=== PATIENT | female | born 1940 | race African-American/Black ===

== ENCOUNTER 2021-07-23 08:56 | Inpatient (IN) ==
[2021-07-23 09:46] LABS: Basophils # (auto) 0.01 K/uL (0-0.2); Basophils % (auto) 0.1 %; Eosinophils # (auto) 0.03 K/uL (0-0.5); Eosinophils % (auto) 0.4 %; Hematocrit (blood only) 29.3 % (37-47); Hemoglobin 8.8 g/dL (12.0-16.0); Immature Granulocytes # (auto) 0.01 K/uL (0.00-0.02); Immature Granulocytes % (auto) 0.1 %; Lymphocytes # (auto) 1.01 K/uL (1.2-3.4); Lymphocytes % (auto) 13.1 %; Mean Corpuscular Hemoglobin 20.4 pg (25-34); Mean Platelet Volume 9.5 fL (7.4-10.4); Monocytes # (auto) 0.82 K/uL (0.11-0.59); Monocytes % (auto) 10.6 %; Neutrophils # (auto) 5.83 K/uL (1.4-6.5); Neutrophils % (auto) 75.7 %; Platelet Count 375 K/uL (130-400); RDW Coefficient of Variation 21.2 % (11.5-14.5); RDW Standard Deviation 48.7 fL (36.4-46.3); Red Blood Count 4.31 M/uL (4.2-5.4); White Blood Count 7.71 K/uL (4.8-10.8)
--- NOTE | 2021-07-23 09:53 | Emergency Department Note ---
Impression & Plan Retrosternal chest pain ED Provider Note INFORMANT: Patient ED PROVIDER(S): Alan Mcgovern MD CHIEF COMPLAINT: Chest pain PLAN: Disposition: Admitted Condition: Good Outpatient prescription management: none Referral: None MEDICAL DECISION MAKING: Patient presented because of chest pain. It was reproducible on examination but her cancer history is very concerning. The patient had a negative EKG. Her CBC showed a moderate stable anemia. No leukocytosis. Troponin was negative. Her c hemistry and LFTs were negative. The patient underwent CT imaging of her chest and this was nondiagnostic due to respiratory motion. Patient did receive pain medication prior to the CT and was noting feeling more comfortable. Unfortunate her D-dimer is over 4000. This complicates the issue and she needs to be brought into the hospital for further diagnostic work-up as she is high risk for pulmonary embolus. Patient is hemodynamically stable at this time. I did discuss this with her son. Consultation was made with Dr. Spears of the hospitalist service. Triage Nursing notes reviewed and agree them. Vital Signs: reviewed and remarkable for mild hypertension Differential diagnosis: Cardiac ischemia, aortic dissection, pulmonary embolism, pneumothorax, pneumonia, pericarditis, myocarditis, esophageal rupture, GERD, cholecystitis, pancreatitis, musculoskeletal, as well as other pathologies. Diagnostics interpreted by me: EC Lead ECG performed and revealed Normal sinus rhythym at 84, normal [place], QRS normal. No elevation or depression. No PACs or PVCs Cardiac Monitoring: Cardiac monitoring ordered by me: The patient was placed on continuous cardiac monitoring and observed. It revealed a normal sinus rhythm at 85 beats per minute without ectopy or evidence of dysrhythmia. Imaging studies: Chest x-ray. Findings: A chest x-ray was performed and revealed no pneumothorax, effusion, infiltrate, pulmonary edema, free air under the diaphragm, or wide mediastinum. Impression: No acute disease. CT PE study revealed no central pulmonary embolus. Peripheral emboli evaluation is nondiagnostic secondary to respiratory motion per radiology. I refer you to the EMR for further details. HPI: The patient is a 81 year old female who presents to the Emergency Room with complaints of retrosternal chest pain. This started yesterday and is persisting. The patient also notes the following associated symptoms, SOB, pain with breathing. Worse with simple movements or coughing. The patient has taken no medication for relieving factors. Current pain is rated as 6/10. Pt denies LOC, headache, fevers, chills, diaphoresis, visual changes, neck pain, nausea, vomiting, abdominal pain, back pain, melena, hematochezia, urinary symptoms, numbness, weakness, lymphadenopathy, rash, or other complaints. ROS: See above HPI for pertinent positives & negatives. A total of 10 systems reviewed and were otherwise negative. PAST MEDICAL HISTORY:See Below , uterine CA PAST SURGICAL HISTORY:See Below, FAMILY HISTORY:See Below SOCIAL HISTORY:See Below, non-smoker HOME MEDICATIONS:See Below ALLERGIES:See Below VITALS:See Below PHYSICAL EXAMINATION: GENERAL: Awake, alert, uncomfortable-appearing, in no distress HENT: Normocephalic, atraumatic. Oropharynx unremarkable. EYES: Normal conjunctiva. Sclera non-icteric. NECK: Inspection normal. Non-tender. Supple. No nuchal rigidity. FROM. No masses. RESPIRATORY: Clear to auscultation. No wheezes. No rales. Normal respiratory effort. CARDIAC: Normal rate. Normal rhythm. No murmurs. No rubs. Extremities warm and well perfused. Pulses equal. No JVD. GI: Soft, non-distended. No tenderness to palpation. No rebound or guarding. No masses. RECTAL: Deferred. MUSCULOSKELETAL: Atraumatic. Chest examination reveals significant parasternal tenderness. The back is symmetrical on inspection without obvious abnormality. There is no CVA tenderness to palpation. No joint edema. LOWER EXTREMITIES: Calves are equal size bilaterally and non-tender. No edema. No discoloration. NEURO: Normal sensorium. No sensory or motor deficits noted. SKIN: No rash or jaundice noted. Alan Mcgovern MD Past Med/Surg History Medical History (Updated 07/23/21 @ 14:57 by Delphine Auguste MD) Bladder cancer Hematuria Hypertension Pelvic mass in female Sciatica Surgical History Hx of cataract surgery Total knee replacement status Family History Denies family history of Ovarian cancer Prostate cancer Myocardial infarction Breast cancer Lung cancer Colorectal cancer Stroke Social History Smoking Status: Never smoker Second Hand Exposure: No; Hx Alcohol Use: No Hx Substance Use: No Preferred Language: Occitan Visual Impairment: No Limitations Hearing Ability: Normal Manager Occupational Required: Yes Beliefs That Will Affect Care: None marital status: / Current Living Situation: Family current occupational status: retired current occupation: Hotel worker How many Children do You have: 3 How many Children do You have Comment: 2-girls 1-Boy Feels Safe at Home: Yes Allergies Allergies Allergy/AdvReac Type Severity Reaction Status Date / Time No Known Allergies Allergy Verified 07/23/21 11:26 Home Meds Home Medications Medication Instructions Recorded Confirmed calcium carbonate 600 mg calcium 600 mg PO DAILY 05/23/20 07/23/21 (1,500 mg) tablet Previous Rx's Medication Instructions Recorded Wheelchair (Manual) #1 ea 06/22/20 gabapentin 400 mg capsule 400 mg PO HS #30 cap 10/27/20 oxycodone 5 mg tablet (Roxicodone) 5 mg PO Q8H PRN #21 tab 06/13/21 metoprolol tartrate 100 mg tablet 100 mg PO DAILY #90 tab 06/14/21 Results & Data (ED) Vital Signs Vital Signs - 24 hr 07/23/21 09:03 07/23/21 09:18 07/23/21 09:56 Temperature 36.7 C Temperature Source Temporal Artery Scan Pulse Rate 84 Pulse Rate [Apical] 83 Pulse Rate from SpO2 Sensor Respiratory Rate 18 22 Respiratory Effort / Characteristics Non-Labored Respiratory Depth Normal Normal Blood Pressure 126/75 Blood Pressure [Left Arm] 134/81 Blood Pressure Mean 92 Blood Pressure Mean [Left Arm] 98 Pulse Oximetry 97 96 Oxygen Delivery Method Room Air Room Air Sepsis Recent Fever Within 48 Hours No Sepsis New/Unexplained Change in Mental Status No Sepsis Action Taken by Nursing No Action Required 07/23/21 11:00 07/23/21 12:00 07/23/21 12:30 Temperature Temperature Source Pulse Rate 77 93 H 89 Pulse Rate [Apical] Pulse Rate from SpO2 Sensor 94 H 89 Respiratory Rate 24 20 20 Respiratory Effort / Characteristics Respiratory Depth Blood Pressure 140/70 121/68 145/75 H Blood Pressure [Left Arm] Blood Pressure Mean 93 85 98 Blood Pressure Mean [Left Arm] Pulse Oximetry 95 95 94 Oxygen Delivery Method Room Air Room Air Room Air Sepsis Recent Fever Within 48 Hours Sepsis New/Unexplained Change in Mental Status Sepsis Action Taken by Nursing 07/23/21 13:00 07/23/21 13:30 07/23/21 14:00 Temperature Temperature Source Pulse Rate 88 88 93 H Pulse Rate [Apical] Pulse Rate from SpO2 Sensor 88 89 91 H Respiratory Rate 19 25 H 24 Respiratory Effort / Characteristics Respiratory Depth Blood Pressure 104/52 L 124/82 125/84 Blood Pressure [Left Arm] Blood Pressure Mean 69 96 97 Blood Pressure Mean [Left Arm] Pulse Oximetry 95 96 95 Oxygen Delivery Method Room Air Room Air Room Air Sepsis Recent Fever Within 48 Hours Sepsis New/Unexplained Change in Mental Status Sepsis Action Taken by Nursing 07/23/21 14:30 07/23/21 15:00 07/23/21 15:30 Temperature Temperature Source Pulse Rate 85 89 85 Pulse Rate [Apical] Pulse Rate from SpO2 Sensor 85 90 86 Respiratory Rate 21 24 21 Respiratory Effort / Characteristics Respiratory Depth Blood Pressure 128/65 148/87 H Blood Pressure [Left Arm] Blood Pressure Mean 86 107 Blood Pressure Mean [Left Arm] Pulse Oximetry 94 95 95 Oxygen Delivery Method Room Air Room Air Room Air Sepsis Recent Fever Within 48 Hours Sepsis New/Unexplained Change in Mental Status Sepsis Action Taken by Nursing Laboratory Data Result diagrams: 07/23/21 09:36 07/23/21 09:36 Lab Results 07/23/21 07/23/21 07/23/21 Range/Units 09:36 09:36 09:36 WBC 7.71 (4.8-10.8) K/uL RBC 4.31 (4.2-5.4) M/uL Hgb 8.8 L (12.0-16.0) g/dL Hct 29.3 L (37-47) % MCV 68.0 L (80-100) fL MCH 20.4 L (25-34) pg MCHC 30.0 L (32-36) g/dL RDW Std Deviation 48.7 H (36.4-46.3) fL RDW Coeff of [place] 21.2 H (11.5-14.5) % Plt Count 375 (130-400) K/uL MPV 9.5 (7.4-10.4) fL Immature Gran % (Auto) 0.1 % Neut % (Auto) 75.7 % Lymph % (Auto) 13.1 % [place] % (Auto) 10.6 % Eos % (Auto) 0.4 % Baso % (Auto) 0.1 % Neut # (Auto) 5.83 (1.4-6.5) K/uL Lymph # (Auto) 1.01 L (1.2-3.4) K/uL [place] # (Auto) 0.82 H (0.11-0.59) K/uL Eos # (Auto) 0.03 (0-0.5) K/uL Baso # (Auto) 0.01 (0-0.2) K/uL Immature Gran # (Auto) 0.01 (0.00-0.02) K/uL Hypochromasia Present Anisocytosis Present Microcytosis Present D-Dimer 4090 H* (0-500) ug/L FEU Sodium 137 (136-145) mmol/L Potassium 4.0 (3.5-5.1) mmol/L Chloride 104 (98-107) mmol/L Carbon Dioxide 26 (21-32) mmol/L Anion Gap 7.0 (3-11) BUN 14 (7-18) mg/dl Creatinine 1.41 H (0.6-1.2) mg/dl Est Cr Clr Drug Dosing Not Reportable Est GFR ( Amer) 39.8 ml/min Est GFR (Non-Af Amer) 34.4 ml/min BUN/Creatinine Ratio 9.7 L (10-20) Glucose 91 (70-99) mg/dl Calcium 9.1 (8.5-10.1) mg/dl Total Bilirubin 0.6 (0.2-1) mg/dl AST 19 (15-37) U/L ALT 12 (12-78) U/L Alkaline Phosphatase 86 (45-117) U/L Troponin I < 0.015 (0-0.045) ng/ml Total Protein 8.7 H (6.4-8.2) gm/dl Albumin 2.7 L (3.4-5.0) gm/dl Globulin 6.0 H (2.5-4.0) gm/dl Albumin/Globulin Ratio 0.5 L (0.9-2) Lipase 66 L (73-393) U/L COVID-19 Eval Order SARS-CoV-2 (PCR) (Negative) 07/23/21 07/23/21 Range/Units 13:57 13:57 WBC (4.8-10.8) K/uL RBC (4.2-5.4) M/uL Hgb (12.0-16.0) g/dL Hct (37-47) % MCV (80-100) fL MCH (25-34) pg MCHC (32-36) g/dL RDW Std Deviation (36.4-46.3) fL RDW Coeff of [place] (11.5-14.5) % Plt Count (130-400) K/uL MPV (7.4-10.4) fL Immature Gran % (Auto) % Neut % (Auto) % Lymph % (Auto) % [place] % (Auto) % Eos % (Auto) % Baso % (Auto) % Neut # (Auto) (1.4-6.5) K/uL Lymph # (Auto) (1.2-3.4) K/uL [place] # (Auto) (0.11-0.59) K/uL Eos # (Auto) (0-0.5) K/uL Baso # (Auto) (0-0.2) K/uL Immature Gran # (Auto) (0.00-0.02) K/uL Hypochromasia Anisocytosis Microcytosis D-Dimer (0-500) ug/L FEU Sodium (136-145) mmol/L Potassium (3.5-5.1) mmol/L Chloride (98-107) mmol/L Carbon Dioxide (21-32) mmol/L Anion Gap (3-11) BUN (7-18) mg/dl Creatinine (0.6-1.2) mg/dl Est Cr Clr Drug Dosing Est GFR ( Amer) ml/min Est GFR (Non-Af Amer) ml/min BUN/Creatinine Ratio (10-20) Glucose (70-99) mg/dl Calcium (8.5-10.1) mg/dl Total Bilirubin (0.2-1) mg/dl AST (15-37) U/L ALT (12-78) U/L Alkaline Phosphatase (45-117) U/L Troponin I (0-0.045) ng/ml Total Protein (6.4-8.2) gm/dl Albumin (3.4-5.0) gm/dl Globulin (2.5-4.0) gm/dl Albumin/Globulin Ratio (0.9-2) Lipase (73-393) U/L COVID-19 Eval Order Covid19 at [facility] SARS-CoV-2 (PCR) NEGATIVE (Negative) Administered Medications Discontinued Medications Ioversol (Optiray 320 125ml) 120 ml IV ONCE ONE Stop: 07/23/21 11:45 Last Admin: 07/23/21 11:44 Dose: 120 ml Documented by: [id number] Morphine Sulfate (Morphine Sulfate 2 Mg/Ml [place]) 2 mg IV NOW STA Stop: 07/23/21 09:56 Last Admin: 07/23/21 10:15 Dose: 2 mg Documented by: [id number] Ondansetron HCl (Ondansetron Inj 2 Mg/Ml 2 Ml Vial) 4 mg IV NOW STA Stop: 07/23/21 09:56 Last Admin: 07/23/21 10:15 Dose: 4 mg Documented by: [id number] Imaging Data Radiologist's Impression: Chest X-Ray 07/23/21 09:26 XR chest 1V portable CLINICAL HISTORY: Atypical chest pain. COMPARISON STUDY: Chest radiograph May 23, 2020. FINDINGS: Lung volumes are normal. Lungs are clear. There is no pneumothorax or pleural effusion. Cardiomegaly is unchanged. Mediastinal contours are normal. There is no evidence for pulmonary edema. 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 IMPRESSION: No acute cardiopulmonary findings. Stable cardiomegaly. ACT 112: Negative or not required by law. Electronically signed by: Scooter Barragan M.D. 07/23/2021 10:26 AM Chest CTA 07/23/21 11:25 CT ANGIOGRAPHY OF THE CHEST, PULMONARY EMBOLUS PROTOCOL CLINICAL HISTORY: Chest pain. Shortness of breath. History of malignancy. COMPARISON STUDY: Chest radiograph June 02, 2020 and July 23, 2021. TECHNIQUE: Following IV administration of 120 mL of Optiray, helical axial images of the chest were obtained utilizing the pulmonary embolus protocol. Maximal intensity projections and sagittal and coronal reformats were viewed on an independent 3D workstation. IV contrast was administered without complication. Automated exposure control was utilized for the study. A dose lowering technique was utilized adhering to the principles of ALARA. CT DOSE: 829.88 mGy.cm FINDINGS: This exam is significantly compromised by respiratory motion. No central pulmonary emboli are identified. Evaluation of the remainder of the pulmonary arteries is nondiagnostic. There is moderate cardiomegaly. No pericardial effusion is present. There is a mildly enlarged right cardiophrenic angle lymph node that measures 1.5 cm. Small bilateral pleural effusions are n oted. Lungs are suboptimally assessed due to respiratory motion. There are mild groundglass opacities within the lungs. No definite consolidation is present. No acute fracture or suspicious lesion is identified within visualized portions of the bony thorax. A small amount of upper abdominal ascites has increased since prior exam. There is suspected peritoneal/omental nodularity. There may be wall thickening of several left upper quadrant jejunal loops, partially imaged on this exam. A splenic hypodensity was present on CT of June 30, 2020. This is indeterminate although probably benign. Prominent right axillary lymph node is unchanged. IMPRESSION: 1. No central pulmonary emboli. Nondiagnostic evaluation of the remainder of the pulmonary arteries due to motion artifact. 2. Small bilateral pleural effusions. Groundglass opacities within the lungs which favor atelectasis or air trapping. An infectious process is considered less likely. 3. Increase in upper abdominal ascites. Findings suspicious for peritoneal carcinomatosis. Enlarged right cardiophrenic angle lymph node which may reflect nadia spread of disease. 4. Possible wall thickening of several left upper quadrant jejunal loops, incompletely imaged on this exam. ACT 112: Negative or not required by law. Electronically signed by: Scooter Barragan M.D. 07/23/2021 12:07 PM Discharge Plan Visit Data Chief Complaint: Chest Pain Stated Complaint: CHEST PAIN, SOB ED Provider: Alan Mcgovern Discharge Problem: Retrosternal chest pain Forms Stand Alone Forms: [facility] [employer] Prescriptions Prescriptions: No Action (DME) Wheelchair (Manual) Device See Rx Instructions .ROUTE .MEDSUPPLY Qty: 1 RF: 0 gabapentin 400 mg capsule 400 mg PO HS Qty: 30 RF: 2 metoprolol tartrate 100 mg tablet 100 mg PO DAILY Qty: 90 RF: 0 calcium carbonate 600 mg calcium (1,500 mg) tablet 600 mg PO DAILY RF: 0 oxycodone [Roxicodone] 5 mg tablet 5 mg PO Q8H PRN (Reason: pain) Qty: 21 RF: 0 Referrals Referrals: Wanda Morse MD [Primary Care Provider] -
[2021-07-23] MEDS ORDERED: MoRPHine SULFATE 2 MG/ML CARP IV STA (09:55)
[2021-07-23] MEDS ORDERED: ONDANSETRON INJ 2 MG/ML 2 ML VIAL IV STA (09:55)
[2021-07-23 10:09] LABS: Anisocytosis Present; Hypochromasia Present; Microcytosis Present
[2021-07-23 10:11] LABS: Alanine Aminotransferase 12 U/L (12-78); Albumin Level 2.7 gm/dl (3.4-5.0); Aspartate Aminotransferase 19 U/L (15-37); BUN Creatinine Ratio 9.7 (10-20); Blood Urea Nitrogen 14 mg/dl (7-18); Calcium 9.1 mg/dl (8.5-10.1); Carbon Dioxide 26 mmol/L (21-32); Chloride 104 mmol/L (98-107); Est GFR (African American) 39.8 ml/min; Est GFR (Non-African American) 34.4 ml/min; Glucose 91 mg/dl (70-99); Lipase 66 U/L (73-393); Sodium 137 mmol/L (136-145)
[2021-07-23 10:16] LABS: Albumin Globulin Ratio 0.5 (0.9-2); Alkaline Phosphatase 86 U/L (45-117); Bilirubin,Total 0.6 mg/dl (0.2-1); Total Protein 8.7 gm/dl (6.4-8.2); Troponin I < 0.015 ng/ml (0-0.045)
--- NOTE | 2021-07-23 10:27 | XRay Report ---
XR chest 1V portable CLINICAL HISTORY: Atypical chest pain. COMPARISON STUDY: Chest radiograph May 23, 2020. FINDINGS: Lung volumes are normal. Lungs are clear. There is no pneumothorax or pleural effusion. Car diomegaly is unchanged. Mediastinal contours are normal. There is no evidence for pulmonary edema. In cidental note is made of severe degenerative changes of the right shoulder and moderate to severe ost eoarthritis of the left shoulder. IMPRESSION: No acute cardiopulmonary findings. Stable cardiomegaly. ACT 112: Negative or not required by law. Electronically signed by: Scooter Barragan M.D. 07/23/2021 10:26 AM
[2021-07-23] MEDS ORDERED: OPTIRAY 320 125ml IV ONE (11:44)
--- NOTE | 2021-07-23 12:08 | CT Scan Report ---
CT ANGIOGRAPHY OF THE CHEST, PULMONARY EMBOLUS PROTOCOL CLINICAL HISTORY: Chest pain. Shortness of breath. History of malignancy. COMPARISON STUDY: Chest radiograph June 02, 2020 and July 23, 2021. TECHNIQUE: Following IV administration of 120 mL of Optiray, helical axial images of the chest were o btained utilizing the pulmonary embolus protocol. Maximal intensity projections and sagittal and cor onal reformats were viewed on an independent 3D workstation. IV contrast was administered without co mplication. Automated exposure control was utilized for the study. A dose lowering technique was ut ilized adhering to the principles of ALARA. CT DOSE: 829.88 mGy.cm FINDINGS: This exam is significantly compromised by respiratory motion. No central pulmonary emboli are identified. Evaluation of the remainder of the pulmonary arteries is nondiagnostic. There is mode rate cardiomegaly. No pericardial effusion is present. There is a mildly enlarged right cardiophrenic angle lymph node that measures 1.5 cm. Small bilateral pleural effusions are noted. Lungs are subopt imally assessed due to respiratory motion. There are mild groundglass opacities within the lungs. No definite consolidation is present. No acute fracture or suspicious lesion is identified within visual ized portions of the bony thorax. A small amount of upper abdominal ascites has increased since prior exam. There is suspected peritoneal/omental nodularity. There may be wall thickening of several left upper quadrant jejunal loops, partially imaged on this exam. A splenic hypodensity was present on CT of June 30, 2020. This is indeterminate although probably benign. Prominent right axillary lymph node is unchanged. IMPRESSION: 1. No central pulmonary emboli. Nondiagnostic evaluation of the remainder of the pulmonary arteries d ue to motion artifact. 2. Small bilateral pleural effusions. Groundglass opacities within the lungs which favor atelectasis or air trapping. An infectious process is considered less likely. 3. Increase in upper abdominal ascites. Findings suspicious for peritoneal carcinomatosis. Enlarged r ight cardiophrenic angle lymph node which may reflect nadia spread of disease. 4. Possible wall thickening of several left upper quadrant jejunal loops, incompletely imaged on this exam. ACT 112: Negative or not required by law. Electronically signed by: Scooter Barragan M.D. 07/23/2021 12:07 PM
[2021-07-23 13:33] LABS: D Dimer 4090 ug/L FEU (0-500)
--- NOTE | 2021-07-23 13:52 | History & Physical Report ---
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 Allergies Allergy/AdvReac Type Severity Reaction Status Date / Time No Known Allergies Allergy Verified 07/23/21 11:26 Home Medications Medication Instructions Recorded Confirmed Type calcium carbonate 600 mg calcium 600 mg PO DAILY 05/23/20 07/23/21 History (1,500 mg) tablet Wheelchair (Manual) #1 ea 06/22/20 07/10/20 Rx gabapentin 400 mg capsule 400 mg PO HS #30 cap 10/27/20 07/23/21 Rx oxycodone 5 mg tablet (Roxicodone) 5 mg PO Q8H PRN #21 tab 06/13/21 07/23/21 Rx metoprolol tartrate 100 mg tablet 100 mg PO DAILY #90 tab 06/14/21 07/23/21 Rx Past Med/Surg History Medical History Bladder cancer Hematuria Hypertension Pelvic mass in female Sciatica Surgical History Hx of cataract surgery Total knee replacement status Family History Denies family history of Ovarian cancer Prostate cancer Myocardial infarction Breast cancer Lung cancer Colorectal cancer Stroke Social History Smoking Status: Never smoker Second Hand Exposure: No; Hx Alcohol Use: No Hx Substance Use: No Preferred Language: Hebrew Visual Impairment: No Limitations Hearing Ability: Normal Legal Transcriptionist Required: Yes Beliefs That Will Affect Care: None marital status: / Current Living Situation: Family current occupational status: retired current occupation: Hotel worker How many Children do You have: 3 How many Children do You have Comment: 2-girls 1-Boy Feels Safe at Home: Yes Results & Data Results & Data ([facility]) Vital Signs (Past 12 Hours) Vital Signs Temp Pulse Pulse Resp BP BP Pulse Ox 07/23/21 13:00 88 19 104/52 L 95 07/23/21 12:30 89 20 145/75 H 94 07/23/21 12:00 93 H 20 121/68 95 07/23/21 11:00 77 24 140/70 95 07/23/21 09:56 83 22 134/81 96 07/23/21 09:03 36.7 C 84 18 126/75 97 PG Care Time/CCT Total # of Minutes Spent Total Time Spent with Patient: Total time spent is greater than 50% in coordination of care (as documented) at patient's floor/unit and/or counseling patient: Coding
--- NOTE | 2021-07-23 15:02 | History & Physical Report ---
Date of Service July 23, 2021 Assessment & Plan (1) Retrosternal chest pain: Plan: Patient's pain appears to be pleuritic, worse on taking deep breaths and worse on movement. Likely noncardiac, most likely associated with peritoneal irritation given her history of cancer. 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 Upon discharge, urged patient to complete the PET scan (3) Hematuria: Plan: Most likely from urothelial cancer, patient states she has been having hematuria on and off for the past couple of years Hemoglobin 8.6 today According to daughter, patient gets IV iron regularly Monitor H&H Transfuse if hemoglobin drops below 7 Admission and Anticipated Discharge Date Admission Date: I anticipate early discharge, so the patient can complete her PET scan. Her chest pain is most likely pleuritic. History of Present Illness Chief Complaint: chest pain Primary Care Provider: Wanda Morse MD This is an 81-year-old female with a history of urothelial carcinoma of the bladder, with local invasion into the adjacent uterus as well as internal and external and left common iliac lymph nodes who presents to the hospital today with complaints of chest pain. Some of the history was obtained from the patient's daughter Wanda who said that the patient was about to get an outpatient PET scan but could not tolerate the procedure because she started having chest pain. The patient said that the chest pain is mostly pleuritic, worse on movement and nonradiating. According to the daughter, patient follows up with the radiation oncologist who had ordered a PET scan. Today in the ED EKG did not show any ST changes and troponin was normal. On account of elevated D-dimer, a CT angio was done which did not show any evidence of PE but demonstrated an increase in upper abdominal ascites and also suspicion for peritoneal carcinomatosis. Initial blood pressure was 104/52, the rest of vital signs are stable. Patient will be admitted to the hospital for further management. Allergies Allergy/AdvReac Type Severity Reaction Status Date / Time No Known Allergies Allergy Verified 07/23/21 11:26 Home Medications Medication Instructions Recorded Confirmed Type calcium carbonate 600 mg calcium 600 mg PO DAILY 05/23/20 07/23/21 History (1,500 mg) tablet Wheelchair (Manual) #1 ea 06/22/20 07/10/20 Rx gabapentin 400 mg capsule 400 mg PO HS #30 cap 10/27/20 07/23/21 Rx oxycodone 5 mg tablet (Roxicodone) 5 mg PO Q8H PRN #21 tab 06/13/21 07/23/21 Rx metoprolol tartrate 100 mg tablet 100 mg PO DAILY #90 tab 06/14/21 07/23/21 Rx Past Med/Surg History Medical History (Updated 07/23/21 @ 14:57 by Delphine Auguste MD) Bladder cancer Hematuria Hypertension Pelvic mass in female Sciatica Surgical History Hx of cataract surgery Total knee replacement status Family History Denies family history of Ovarian cancer Prostate cancer Myocardial infarction Breast cancer Lung cancer Colorectal cancer Stroke Social History Smoking Status: Never smoker Second Hand Exposure: No; Hx Alcohol Use: No Hx Substance Use: No Preferred Language: Syriac Visual Impairment: No Limitations Hearing Ability: Normal Inoculator Required: Yes Beliefs That Will Affect Care: None marital status: / Current Living Situation: Family current occupational status: retired current occupation: Hotel worker How many Children do You have: 3 How many Children do You have Comment: 2-girls 1-Boy Feels Safe at Home: Yes Review of Systems Review of Systems: All systems reviewed are negative, apart from the ones contained in the history. Physical Exam Physical Exam: The patient is awake, alert and oriented 3, well developed and well nourished, normocephalic and atraumatic, lying in bed and in no acute distress. HEENT--PERRL, EOMI, mucous membranes and oropharynx mildly dry Neck--supple. No JVD. No bruits. Thyroid normal, trachea midline, no adenopathy. Heart--normal S1 and S2. No murmurs, rubs or gallops. Lungs--clear bilaterally, no respiratory distress, no accessory muscle use. Abdomen--Distended, tender Extremities--no cyanosis or clubbing. No edema. Dermatologic--normal skin turgor, normal color, no abnormal lymph nodes, no rash. Neurologic--cranial nerves II through XII grossly intact. Rheumatologic--normal range of motion. Psychiatric--normal affect. Results & Data Results & Data ([facility] Vital Signs (Past 12 Hours) Vital Signs Temp Pulse Pulse Resp BP BP Pulse Ox 07/23/21 13:00 88 19 104/52 L 95 07/23/21 12:30 89 20 145/75 H 94 07/23/21 12:00 93 H 20 121/68 95 07/23/21 11:00 77 24 140/70 95 07/23/21 09:56 83 22 134/81 96 07/23/21 09:03 98.1 F 84 18 126/75 97 Diagnostic Findings Laboratory Results - last 24 hr 07/23/21 07/23/21 07/23/21 09:36 09:36 09:36 WBC 7.71 RBC 4.31 Hgb 8.8 L Hct 29.3 L MCV 68.0 L MCH 20.4 L MCHC 30.0 L RDW Std Deviation 48.7 H RDW Coeff of [place] 21.2 H Plt Count 375 MPV 9.5 Immature Gran % (Auto) 0.1 Neut % (Auto) 75.7 Lymph % (Auto) 13.1 [place] % (Auto) 10.6 Eos % (Auto) 0.4 Baso % (Auto) 0.1 Neut # (Auto) 5.83 Lymph # (Auto) 1.01 L [place] # (Auto) 0.82 H Eos # (Auto) 0.03 Baso # (Auto) 0.01 Immature Gran # (Auto) 0.01 Hypochromasia Present Anisocytosis Present Microcytosis Present D-Dimer 4090 H* Sodium 137 Potassium 4.0 Chloride 104 Carbon Dioxide 26 Anion Gap 7.0 BUN 14 Creatinine 1.41 H Est Cr Clr Drug Dosing Not Reportable Est GFR ( Amer) 39.8 Est GFR (Non-Af Amer) 34.4 BUN/Creatinine Ratio 9.7 L Glucose 91 Calcium 9.1 Total Bilirubin 0.6 AST 19 ALT 12 Alkaline Phosphatase 86 Troponin I < 0.015 Total Protein 8.7 H Albumin 2.7 L Globulin 6.0 H Albumin/Globulin Ratio 0.5 L Lipase 66 L COVID-19 Eval Order SARS-CoV-2 (PCR) 07/23/21 07/23/21 13:57 13:57 WBC RBC Hgb Hct MCV MCH MCHC RDW Std Deviation RDW Coeff of [place] Plt Count MPV Immature Gran % (Auto) Neut % (Auto) Lymph % (Auto) [place] % (Auto) Eos % (Auto) Baso % (Auto) Neut # (Auto) Lymph # (Auto) [place] # (Auto) Eos # (Auto) Baso # (Auto) Immature Gran # (Auto) Hypochromasia Anisocytosis Microcytosis D-Dimer Sodium Potassium Chloride Carbon Dioxide Anion Gap BUN Creatinine Est Cr Clr Drug Dosing Est GFR ( Amer) Est GFR (Non-Af Amer) BUN/Creatinine Ratio Glucose Calcium Total Bilirubin AST ALT Alkaline Phosphatase Troponin I Total Protein Albumin Globulin Albumin/Globulin Ratio Lipase COVID-19 Eval Order Covid19 at [facility] SARS-CoV-2 (PCR) Pending PG Care Time/CCT Total # of Minutes Spent Total Time Spent with Patient: Total time spent is greater than 50% in coordination of care (as documented) at patient's floor/unit and/or counseling patient: Coding Level of Care Code 11973 Initial Inpt Care Lvl 3 Diagnoses Hematuria R31.9 Bladder cancer C67.9 Retrosternal chest pain R07.2
--- NOTE | 2021-07-23 15:27 | Electrocardiogram Report ---
Test Reason : Blood Pressure : / mmHG Vent. Rate : 084 BPM Atrial Rate : 084 BPM P-R Int : 154 ms QRS Dur : 074 ms QT Int : 384 ms P-R-T Axes : 065 003 023 degrees QTc Int : 453 ms Normal sinus rhythm Normal ECG No previous ECGs available Confirmed by Sunil Kerr ([id number]) on 07/23/2021 3:27:24 PM Referred By: REFERRED SELF Confirmed By:Sunil Kerr
[2021-07-23] MEDS ORDERED: oxyCODONE HCL IR 5 MG TAB (IMMEDIATE RELEASE) PO PRN (18:03)
[2021-07-23] MEDS ORDERED: MoRPHine SULFATE 2 MG/ML CARP IV PRN (18:03)
[2021-07-23] MEDS ORDERED: GABAPENTIN 400 MG CAP PO SCH (21:00)
[2021-07-24] MEDS ORDERED: METOPROLOL TARTRATE 100 MG TAB PO SCH (09:00)
[2021-07-24] MEDS ORDERED: CALCIUM CARBONATE 1250MG TAB PO SCH (09:00)
--- NOTE | 2021-07-24 11:15 | Discharge Summary ---
Date of Service July 24, 2021 Admission HPI Per Admitting Provider This is an 81-year-old female with a history of urothelial carcinoma of the bladder, with local invasion into the adjacent uterus as well as internal and external and left common iliac lymph nodes who presents to the hospital today with complaints of chest pain. Some of the history was obtained from the patient's daughter Wanda who said that the patient was about to get an outpatient PET scan but could not tolerate the procedure because she started having chest pain. The patient said that the chest pain is mostly pleuritic, worse on movement and nonradiating. According to the daughter, patient follows up with the radiation oncologist who had ordered a PET scan. Today in the ED EKG did not show any ST changes and troponin was normal. On account of elevated D-dimer, a CT angio was done which did not show any evidence of PE but demonstrated an increase in upper abdominal ascites and also suspicion for peritoneal carcinomatosis. Initial blood pressure was 104/52, the rest of vital signs are stable. Patient will be admitted to the hospital for further management. Upon further hospitalization, patient received morphine for pain management, with improvement in her chest pain. She expressed a willingness to be discharged. She was asked to follow up with her Oncologist for proper management of her cancer Principal Diagnosis Pleuritic chest pain Discharge Exam The patient is awake, alert and oriented 3, well developed and well nourished, normocephalic and atraumatic, lying in bed and in no acute distress. HEENT--PERRL, EOMI, mucous membranes and oropharynx mildly dry Neck--supple. No JVD. No bruits. Thyroid normal, trachea midline, no adenopathy. Heart--normal S1 and S2. No murmurs, rubs or gallops. Lungs--clear bilaterally, no respiratory distress, no accessory muscle use. Abdomen--Distended, tender Extremities--no cyanosis or clubbing. No edema. Dermatologic--normal skin turgor, normal color, no abnormal lymph nodes, no rash. Neurologic--cranial nerves II through XII grossly intact. Rheumatologic--normal range of motion. Psychiatric--normal affect. 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 Upon discharge, urged patient to complete the PET scan (2) Hematuria: Most likely from urothelial cancer, patient states she has been having hematuria on and off for the past couple of years Hemoglobin 8.6 today According to daughter, patient gets IV iron regularly Monitor H&H Transfuse if hemoglobin drops below 7 Total Time Total Time Spent Total Time Spent (In Minutes): >35 min Discharge Plan Discharge Items Patient Disposition: Personal Jail Reason For Visit: CHEST PAIN Discharge Diagnosis: Pleuritic chest pain- resolved Condition on Discharge: Fair Health Concerns: Metastatic urothelial cancer Activity: Resume your previous activity Lifting: Gradually increase as tolerated Bathing: No limitations Non-emergency contact: Primary Care Provider and Oncologist Call non-emergency contact if: you have any medication questions, your symptoms worsen and your pain is not controlled Follow-up/Referrals: Wanda Morse MD [Primary Care Provider] - 07/27/21 2:00 pm (APPT WITH CHINA MCKEON) Diet: Regular Addtl Attending Provider Instructions: Please make appointment to complete your PET scan Pending Studies at Discharge: No Stand-Alone Forms: My [employer], Smoking Cessation Skilled Items Patient informed of condition?: Yes DNR: No Discharge Level of Care: Other Communicable Disease: No Discharge Prognosis: Other Lines: None Urinary Catheter: No Medications and DC Order Prescriptions: Continued (DME) Wheelchair (Manual) Device See Rx Instructions .ROUTE .MEDSUPPLY Qty: 1 RF: 0 gabapentin 400 mg capsule 400 mg PO HS Qty: 30 RF: 2 metoprolol tartrate 100 mg tablet 100 mg PO DAILY Qty: 90 RF: 0 calcium carbonate 600 mg calcium (1,500 mg) tablet 600 mg PO DAILY RF: 0 oxycodone [Roxicodone] 5 mg tablet 5 mg PO Q8H PRN (Reason: pain) Qty: 21 RF: 0 Discharge Orders: Discharge Order (Routine); Ordered 07/24/21 Ordered By: Delphine Auguste Admission Data Admit Date/Time: 07/23/21 15:38 Attending Provider: Delphine Auguste Admit Provider: Delphine Auguste Primary Care Provider: Wanda Morse Other Providers: Sunil Spears Coding Level of Care Code D/C DAY MANAGEMENT >30 MINS Diagnoses Bladder cancer C67.9 Hematuria R31.9
[2021-07-24] MEDS ORDERED: IRON SUCROSE 400 MG in SODIUM CHLORIDE 0.9% 250 ML IV ONE (14:30)
[2021-07-24] MEDS ORDERED: FUROSEMIDE 40 MG/4 ML VIAL IV ONE (15:34)
== END 2021-07-24 18:36 | disposition home or self-care (01) | DRG 204 ==
LOC: ED 08:56 → 3N 15:38

== ENCOUNTER 2021-08-14 12:40 | Inpatient (IN) ==
[2021-08-14] MEDS ORDERED: ALBUT/IPRATROP 3MG/0.5MG NEB 3 ML VIAL INH STA (12:55)
[2021-08-14] MEDS ORDERED: SODIUM CHLORIDE 0.9% 500 ML IV STA (12:55)
--- NOTE | 2021-08-14 13:02 | Emergency Department Note ---
History of Present Illness General Chief complaint: Shortness of Breath/Dyspnea Time Seen by Provider: 08/14/21 12:48 History of Present Illness 81-year-old female presents to the ED with a chief complaint of shortness of breath. History was mainly obtained from the daughter. She states that she has been more short of breath than usual. She has been more short of breath since last week when she had a chest x-ray here. The patient is chronically on fentanyl and oxycodone for metastatic bladder cancer. The patient does have also a history of anemia and received an iron transfusion 2 weeks ago. No addit ional complaints. The daughter reports some wheezing in the upper airways noted on observation the patient. Home Medications Medication Instructions Recorded Confirmed Type calcium carbonate 600 mg calcium 600 mg PO DAILY 05/23/20 07/23/21 History (1,500 mg) tablet Wheelchair (Manual) #1 ea 06/22/20 07/10/20 Rx gabapentin 400 mg capsule 400 mg PO HS #30 cap 10/27/20 07/23/21 Rx oxycodone 5 mg tablet (Roxicodone) 5 mg PO Q8H PRN #21 tab 06/13/21 07/23/21 Rx metoprolol tartrate 100 mg tablet 100 mg PO DAILY #90 tab 06/14/21 07/23/21 Rx Allergies Allergy/AdvReac Type Severity Reaction Status Date / Time No Known Allergies Allergy Verified 07/23/21 11:26 Past Med/Surg History Medical History Bladder cancer Hematuria Hypertension Pelvic mass in female Sciatica Surgical History Hx of cataract surgery Total knee replacement status Family History Denies family history of Ovarian cancer Prostate cancer Myocardial infarction Breast cancer Lung cancer Colorectal cancer Stroke Social History Smoking Status: Never smoker Second Hand Exposure: No; Hx Alcohol Use: No Hx Substance Use: No Preferred Language: Guyanese Creole Communication Ability: Effective Communication Tools: Language Line Arc Air Operator Visual Impairment: No Limitations Hearing Ability: Normal Arc Air Operator Required: Yes Beliefs That Will Affect Care: None marital status: / Current Living Situation: Other Current Living Situation Comment: [place] current occupational status: retired current occupation: Hotel worker How many Children do You have: 1 How many Children do You have Comment: 2-girls 1-Boy Feels Safe at Home: Yes Assistive Devices: Walker Review of Systems A total of 10 systems reviewed and were otherwise negative Physical Exam Vital Signs Vital Signs - 24 hr 08/14/21 12:49 08/14/21 12:56 08/14/21 13:30 Pulse Rate 70 Pulse Rate [Apical] 67 Respiratory Rate 28 H 20 Respiratory Effort / Characteristics Labored Labored Spontaneous Pulse Oximetry 98 96 Oxygen Delivery Method Room Air Nasal Cannula Room Air Sepsis Recent Fever Within 48 Hours No Sepsis New/Unexplained Change in Mental Status No Sepsis Action Taken by Nursing No Action Required CONSTITUTIONAL/VITAL SIGNS: Reviewed / noted above. GENERAL: Non-toxic in appearance. INTEGUMENTARY: Warm, dry, and [place]. HEAD: Normocephalic. EYES: without scleral icterus or trauma. ENT/OROPHARYNX: clear and moist. LYMPHADENOPATHY/NECK: Is supple without lymphadenopathy or meningismus. RESPIRATORY: Clear but diminished to auscultation bilaterally. No increased work of breathing. There are some wheezing coming from the nostrils. CARDIOVASCULAR: Regular rate and rhythm. GI/ABDOMEN: Soft and nontender. No organomegaly or pulsatile mass. EXTREMITIES: Warm and well perfused. BACK: No CVA tenderness. NEUROLOGICAL: Intact without focal deficits. PSYCHIATRIC: normal affect. MUSCULOSKELETAL: Normally developed with good muscle tone. TRIAGE NURSING DOCUMENTATION REVIEWED. Course Administered Medications Discontinued Medications Albuterol (Albut/Ipratrop 3mg/0.5mg Neb 3 Ml Vial) 3 ml INH NOW STA Stop: 08/14/21 12:56 Last Admin: 08/14/21 13:28 Dose: 3 ml Documented by: [id number] Sodium Chloride (Nss) 500 mls @ 999 mls/hr IV .Q31M STA Stop: 08/14/21 13:25 Last Admin: 08/14/21 14:42 Dose: 999 mls/hr Documented by: [id number] Medical Decision Making Differential Diagnosis The differential was considered includes acute myocardial infarction, acute coronary syndrome, myocarditis, pericarditis, pericardial effusions /tamponad, esophageal perforation, pulmonary embolism, pneumonia, pneumothorax, ca rdiomyopathy, congestive heart, anemia , COPD/asthma exacerbation. Medical Records Attestation: I reviewed the patient's medical records. Home Medications Current Medication List: was personally reviewed by me Laboratory Data Attestation: I reviewed the patient's lab results. Result diagrams: 08/14/21 13:41 08/14/21 13:41 Lab Results 08/14/21 08/14/21 Range/Units 13:41 13:41 WBC 10.00 (4.8-10.8) K/uL RBC 4.33 (4.2-5.4) M/uL Hgb 9.3 L (12.0-16.0) g/dL Hct 30.6 L (37-47) % MCV 70.7 L (80-100) fL MCH 21.5 L (25-34) pg MCHC 30.4 L (32-36) g/dL RDW Std Deviation 59.4 H (36.4-46.3) fL RDW Coeff of [place] 23.1 H (11.5-14.5) % Plt Count 507 H (130-400) K/uL MPV 9.4 (7.4-10.4) fL Immature Gran % (Auto) 0.6 % Neut % (Auto) 82.3 % Lymph % (Auto) 8.5 % [place] % (Auto) 8.1 % Eos % (Auto) 0.2 % Baso % (Auto) 0.3 % Neut # (Auto) 8.23 H (1.4-6.5) K/uL Lymph # (Auto) 0.85 L (1.2-3.4) K/uL [place] # (Auto) 0.81 H (0.11-0.59) K/uL Eos # (Auto) 0.02 (0-0.5) K/uL Baso # (Auto) 0.03 (0-0.2) K/uL Immature Gran # (Auto) 0.06 H (0.00-0.02) K/uL Absolute Nucleated RBC 0.04 H (0-0) K/uL Nucleated RBC % (auto) 0.4 % Hypersegmented Neuts 1+ Polychromasia 1+ Hypochromasia Present Target Cells 1+ Sodium 134 L (136-145) mmol/L Potassium 7.3 H* (3.5-5.1) mmol/L Chloride 109 H (98-107) mmol/L Carbon Dioxide 17 L (21-32) mmol/L Anion Gap 7.0 (3-11) BUN 48 H (7-18) mg/dl Creatinine 2.84 H (0.6-1.2) mg/dl Est Cr Clr Drug Dosing Not Reportable Est GFR ( Amer) 17.1 ml/min Est GFR (Non-Af Amer) 14.7 ml/min BUN/Creatinine Ratio 17.0 (10-20) Glucose 97 (70-99) mg/dl Calcium 9.3 (8.5-10.1) mg/dl Total Bilirubin 0.3 (0.2-1) mg/dl AST 22 (15-37) U/L ALT 12 (12-78) U/L Alkaline Phosphatase 114 (45-117) U/L Troponin I < 0.015 (0-0.045) ng/ml NT-Pro-B Natriuret Pep 2028 H (0-1800) pg/ml Total Protein 9.9 H (6.4-8.2) gm/dl Albumin 2.2 L (3.4-5.0) gm/dl Globulin 7.7 H (2.5-4.0) gm/dl Albumin/Globulin Ratio 0.3 L (0.9-2) Imaging Data Radiologist's Impression: Chest X-Ray 08/14/21 12:55 XR chest 1V portable CLINICAL HISTORY: Dyspnea. COMPARISON STUDY: 08/08/2021 TECHNIQUE: 1 view of the chest FINDINGS: Single frontal view of the chest demonstrates the cardiomediastinal silhouette to be within normal limits. There is a decreased inspiratory effort with elevation of the hemidiaphragms and crowding of the bronchovascular markings at the lung bases and centrally. The lungs are clear of alveolar opacities. There is again evidence for a small left pleural effusion. There is no evidence for vascular congestion. There is no acute osseous pathology. IMPRESSION: There is a decreased inspiratory effort with evidence for small left pleural effusion again seen. ACT 112: Negative or not required by law. Electronically signed by: Gary Corbin M.D. 08/14/2021 1:31 PM ECG Data Attestation: I personally reviewed and interpreted this ECG as follows: Additional Comments: Twelve-lead EKG: Per my interpretation shows a sinus rhythm at a rate of 64. No ST elevation. No PVCs. Normal QTC. MDM Narrative 81-year-old female presents with increased shortness of breath. She does have metastatic bladder cancer. Vital signs are stable. Breath sounds are diminished with poor effort. Chest x-ray shows decreased inspiratory effort but no acute pulmonary disease. There is a small left pleural effusion similar to previous. The patient's blood work shows an unremarkable CBC. Hemoglobin is at baseline at 9.3. The patient's potassium is 7.3. The lab states no hemolysis. Her BUN is 48 and creatinine is 2.84, higher than her normal which is around 1.3. Troponin was negative. BNP was 2028. Patient was given 500 cc of normal saline IV. She was given IV calcium gluconate, DuoNeb treatment, IV insulin, IV bicarb, IV glucose and p.o. Kayexalate. She will be seen by the hospitalist for further inpatient evaluation and care. Impression & Plan Acute hyperkalemia, BALA (acute kidney injury), Acute dehydration, Weakness Discharge Plan Visit Data Chief Complaint: Shortness of Breath/Dyspnea ED Provider: Dre Rivers Discharge Problem: Acute hyperkalemia, BALA (acute kidney injury), Acute dehydration, Weakness Patient Disposition: Being Evaluated by Hospitalist Forms Stand Alone Forms: My [facility] [employer] Prescriptions Prescriptions: No Action (DME) Wheelchair (Manual) Device See Rx Instructions .ROUTE .MEDSUPPLY Qty: 1 RF: 0 gabapentin 400 mg capsule 400 mg PO HS Qty: 30 RF: 2 metoprolol tartrate 100 mg tablet 100 mg PO DAILY Qty: 90 RF: 0 calcium carbonate 600 mg calcium (1,500 mg) tablet 600 mg PO DAILY RF: 0 oxycodone [Roxicodone] 5 mg tablet 5 mg PO Q8H PRN (Reason: pain) Qty: 21 RF: 0 Referrals Referrals: Wanda Morse MD [Primary Care Provider] -
--- NOTE | 2021-08-14 13:33 | XRay Report ---
XR chest 1V portable CLINICAL HISTORY: Dyspnea. COMPARISON STUDY: 08/08/2021 TECHNIQUE: 1 view of the chest FINDINGS: Single frontal view of the chest demonstrates the cardiomediastinal silhouette to be within normal li mits. There is a decreased inspiratory effort with elevation of the hemidiaphragms and crowding of th e bronchovascular markings at the lung bases and centrally. The lungs are clear of alveolar opacities . There is again evidence for a small left pleural effusion. There is no evidence for vascular conges tion. There is no acute osseous pathology. IMPRESSION: There is a decreased inspiratory effort with evidence for small left pleural effusion aga in seen. ACT 112: Negative or not required by law. Electronically signed by: Gary Corbin M.D. 08/14/2021 1:31 PM
[2021-08-14 13:55] LABS: Basophils # (auto) 0.03 K/uL (0-0.2); Basophils % (auto) 0.3 %; Eosinophils # (auto) 0.02 K/uL (0-0.5); Eosinophils % (auto) 0.2 %; Hematocrit (blood only) 30.6 % (37-47); Hemoglobin 9.3 g/dL (12.0-16.0); Immature Granulocytes # (auto) 0.06 K/uL (0.00-0.02); Immature Granulocytes % (auto) 0.6 %; Lymphocytes # (auto) 0.85 K/uL (1.2-3.4); Lymphocytes % (auto) 8.5 %; Mean Corpuscular Hemoglobin 21.5 pg (25-34); Mean Corpuscular Hgb Conc 30.4 g/dL (32-36); Mean Corpuscular Volume 70.7 fL (80-100); Mean Platelet Volume 9.4 fL (7.4-10.4); Monocytes # (auto) 0.81 K/uL (0.11-0.59); Monocytes % (auto) 8.1 %; Neutrophils # (auto) 8.23 K/uL (1.4-6.5); Neutrophils % (auto) 82.3 %; Nucleated RBC # (auto) 0.04 K/uL (0-0); Nucleated RBC % (auto) 0.4 %; Platelet Count 507 K/uL (130-400); RDW Coefficient of Variation 23.1 % (11.5-14.5); RDW Standard Deviation 59.4 fL (36.4-46.3); Red Blood Count 4.33 M/uL (4.2-5.4)
[2021-08-14 14:23] LABS: Hypochromasia Present; Polychromasia 1+; Target Cells 1+
[2021-08-14 14:39] LABS: Alanine Aminotransferase 12 U/L (12-78); Albumin Globulin Ratio 0.3 (0.9-2); Albumin Level 2.2 gm/dl (3.4-5.0); Alkaline Phosphatase 114 U/L (45-117); Aspartate Aminotransferase 22 U/L (15-37); Bilirubin,Total 0.3 mg/dl (0.2-1); Blood Urea Nitrogen 48 mg/dl (7-18); Calcium 9.3 mg/dl (8.5-10.1); Carbon Dioxide 17 mmol/L (21-32); Chloride 109 mmol/L (98-107); Est GFR (African American) 17.1 ml/min; Est GFR (Non-African American) 14.7 ml/min; Globulin 7.7 gm/dl (2.5-4.0); Glucose 97 mg/dl (70-99); NT Pro B Type Natriuretic Pept 2028 pg/ml (0-1800); Potassium 7.3 mmol/L (3.5-5.1); Sodium 134 mmol/L (136-145); Total Protein 9.9 gm/dl (6.4-8.2); Troponin I < 0.015 ng/ml (0-0.045)
[2021-08-14] MEDS ORDERED: NovoLIN-R INSULIN PER UNIT CHARGE IV STA ×2 (14:50→16:44)
[2021-08-14] MEDS ORDERED: DEXTROSE 50% 50 ML SYRINGE IV ONE ×4 (14:50→23:53)
[2021-08-14] MEDS ORDERED: CALCIUM GLUCONATE 1,000 MG/60 ML BAG IV STA (14:50)
[2021-08-14] MEDS ORDERED: SODIUM POLYSTYRENE SULFONATE 15G/60ML SUSP PO STA (14:50)
[2021-08-14] MEDS ORDERED: SODIUM BICARB 8.4% INJ 50 MEQ/50 ML SYR IV STA (14:50)
[2021-08-14 15:30] LABS: Influenza A virus by PCR Negative (Negative); Influenza B virus by PCR Negative (Negative)
--- NOTE | 2021-08-14 16:27 | History & Physical Report ---
Date of Service August 14, 2021 Assessment & Plan (1) Acute hyperkalemia: Plan: Patient with profound hyperkalemia secondary to acute kidney injury as below Potassium 7.3 on arrival-in the ER, received IV calcium gluconate, insulin 10 units and D50, albuterol, Kayexalate 30 g p.o. Repeat potassium still elevated-we will repeat insulin and D50 now, start sodium bicarbonate drip Follow serial labs and continue to treat as needed with either insulin/D50, albuterol nebulizer, repeat Kayexalate, and calcium gluconate -Follow on telemetry Low potassium diet (2) BALA (acute kidney injury): Plan: Creatinine rising over the last couple of weeks PET-CT scan recently with hydronephrosis on the right secondary to compression from pelvic mass I discussed the case with urology on the phone who does not think that a stent would be helpful as the bladder mass would likely continue to occlude the ureter We will place Clark catheter-there is a chance that she will have hematuria with this worsened because of her pelvic mass eroding into her bladder If renal failure is worsening, urology recommends dialysis versus transfer out for nephrostomy tubes if patient desires I suspected that due to nature of metastatic disease, approaching end-of-life, and worsening renal failure, as discussed with patient and her daughter at the bedside, she may need to consider palliative medicine/hospice care as she would not be able to tolerate chemotherapy which is to be started later this week -Follow serial BMP -Monitor urine output -Consult nephrology -Renally dose medications and avoid nephrotoxins (3) Weakness: Plan: Secondary to metastatic cancer and worsening renal failure (4) Hematuria: Plan: Secondary to bladder mass (5) Bladder cancer: Plan: Stage IV, metastatic disease Was supposed to start [facility] this [facility], but daughter fears she is too weak to withstand chemotherapy Patient reports she wanted to just try it at least once, but is accepting of if it occurs Patient also reports "I hate pain and I do not want any pain"-I confirmed with her that she would want to be kept comfortable if her condition worsened We will consult palliative medicine-Dr. Wanda Morse of palliative medicine is listed as her PCP and it seems most likely is familiar with this patient already -Continue fentanyl patch and oxycodone as needed for pain Continue bowel regimen for opioid-induced constipation Continue Megace for appetite stimulation (6) Hypertension: Plan: Blood pressures are mildly elevated Continue home metoprolol (7) Microcytic anemia: Plan: Hemoglobin stable at 9.5, microcytic Secondary to chronic hematuria and vaginal bleeding from metastatic cancer Has received IV iron treatments at the cancer center in the recent past Check iron studies in the morning and give IV iron if desired Plan: DVT prophylaxis-SCDs only given hematuria as well as chronic vaginal bleeding and anemia Disposition-admit to PCU DNR/DNI, prognosis is guarded History of Present Illness Chief Complaint: Shortness of breath Primary Care Provider: Wanda Morse MD This patient is an 81-year-old female with a history of 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 She feels like she cannot lay flat and that her abdomen is pressing up on her lungs. The patient speaks Creole, East Timorese, and a little bit of Bermudian but she is able to understand everything I am saying to her. Her daughter is at the bedside and does explain most of the history. The daughter is a nurse. She states that the patient also has frequent small amounts of urine all day long, and hematuria and vaginal bleeding. She has chronic pain in her abdomen and has known ascites and carcinomatosis. She has a fentanyl patch and takes oxycodone as needed. The patient initially had declined any chemotherapy treatment when her cancer was in an earlier stage in 2019 as per the daughter, and then recently returned to follow-up with oncology due to worsening pain. The patient does state that she wants to try chemotherapy-she is scheduled to start that later this week. Daughter has concerns that the patient will not be able to tolerate chemotherapy at all and that this will hasten her . Daughter reports that the patient is generally very weak. She also has issues with constipation but takes prune juice and MiraLAX as well as senna and has been moving her bowels fairly regularly. In the ER, she was found to have worsening acute kidney injury (she had blood work done 1 week ago that also showed acute kidney injury and hyperkalemia) and hyperkalemia with a potassium of 7.1. She was given IV calcium gluconate, 10 units of IV insulin along with 1 amp of D50, 50 mEq of IV sodium bicarbonate, a 500 mL bolus of normal saline, and 1 dose of Kayexalate 30 g. She was also given an albuterol nebulizer treatment. Repeat potassium an hour later was still elevated at 7.4. Her creatinine was elevated at 2.84 and she also had a non-anion gap metabolic acidosis with a serum bicarbonate of 17. A recent PET-CT scan from 2 weeks ago did show moderate right-sided hydronephrosis likely secondary to obstruction from pelvic tumor. She will be admitted for acute kidney injury and hyperkalemia in the setting of advanced metastatic bladder cancer. Allergies Allergy/AdvReac Type Severity Reaction Status Date / Time broccoli Allergy Rash Unverified 08/14/21 17:55 Home Medications Medication Instructions Recorded Confirmed Type oxycodone 5 mg tablet (Roxicodone) 5 mg PO Q8H PRN #21 tab 06/13/21 08/14/21 Rx metoprolol tartrate 100 mg tablet 100 mg PO DAILY #90 tab 06/14/21 08/14/21 Rx Prune Juice 4 oz PO BID PRN 08/14/21 08/14/21 History fentanyl 12 mcg/hr transdermal 12 mcg TRANSDERMAL .Q72H 08/14/21 08/14/21 History patch megestrol 40 mg tablet 80 mg PO BID 08/14/21 08/14/21 History polyethylene glycol 3350 17 17 g PO DAILY PRN 08/14/21 08/14/21 History gram/dose oral powder (Miralax) prochlorperazine maleate 10 mg 10 mg PO QID PRN 08/14/21 08/14/21 History tablet sennosides 8.6 mg-docusate sodium 3 tab-cap PO DAILY 08/14/21 08/14/21 History 50 mg tablet (Senna-S) Past Med/Surg History Medical History (Updated 08/15/21 @ 01:11 by Kaylene Reddy MD) Bladder cancer Hematuria Hypertension Microcytic anemia Pelvic mass in female Sciatica Surgical History Hx of cataract surgery Total knee replacement status Family History Denies family history of Ovarian cancer Prostate cancer Myocardial infarction Breast cancer Lung cancer Colorectal cancer Stroke Social History Smoking Status: Never smoker Second Hand Exposure: No; Hx Alcohol Use: No Hx Substance Use: No Preferred Language: Turkish Creole Communication Ability: Effective Communication Tools: Language Line Wheel Assembler Visual Impairment: No Limitations Hearing Ability: Normal Wheel Assembler Required: Yes Beliefs That Will Affect Care: None marital status: / Current Living Situation: Other Current Living Situation Comment: Faby current occupational status: retired current occupation: [employer] worker How many Children do You have: 1 How many Children do You have Comment: 2-girls 1-Boy Feels Safe at Home: Yes Assistive Devices: Walker Review of Systems Review of Systems: All systems reviewed & are unremarkable except as noted in HPI & below Physical Exam Constitutional: WD/WN, vitals as above Eyes: PERRL, conjunctivae normal, anicteric sclerae ENMT: external ear and nose normal, oropharynx normal Neck: trachea midline, no thyromegaly Respiratory: normal respiratory effort, lungs clear to auscultation (With some upper airway wheezes) Cardiovascular: RRR, no murmur, no edema Chest (Breasts): Chest: normal inspection of chest Gastrointestinal (Abdomen): Inspection/Auscultation: + abdomen distended (Mild) and normal bowel sounds Percussion/Palpation: abdomen soft; abdomen nontender Musculoskeletal: Extremities: extremities normal to inspection; no cyanosis and no clubbing Skin: no rashes, warm and dry Neurologic: moves all extremities and awake; no focal motor deficits Psychiatric: A+Ox3, euthymic affect Results & Data Results & Data ([facility]) Vital Signs (Past 12 Hours) Vital Signs Pulse Pulse Resp BP Pulse Ox 08/14/21 15:30 65 16 121/77 94 08/14/21 13:30 67 20 96 08/14/21 12:49 70 28 H 98 Laboratory Results labs reviewed Diagnostic Findings Chest X-Ray 08/14/21 12:55 XR chest 1V portable CLINICAL HISTORY: Dyspnea. COMPARISON STUDY: 08/08/2021 TECHNIQUE: 1 view of the chest FINDINGS: Single frontal view of the chest demonstrates the cardiomediastinal silhouette to be within normal limits. There is a decreased inspiratory effort with elevation of the hemidiaphragms and crowding of the bronchovascular markings at the lung bases and centrally. The lungs are clear of alveolar opacities. There is again evidence for a small left pleural effusion. There is no evidence for vascular congestion. There is no acute osseous pathology. IMPRESSION: There is a decreased inspiratory effort with evidence for small left pleural effusion again seen. ACT 112: Negative or not required by law. Electronically signed by: Gary Corbin M.D. 08/14/2021 1:31 PM ECG Additional Comments: ECG on 08/14/2021 at 1534 normal sinus rhythm, rate 66, nonspecific change in ST segment in lateral leads Code Status & VTE Plan Code Status DNR/DNI VTE Prophylaxis Plan VTE Prophylaxis will be ordered: Yes PG Care Time/CCT Total # of Minutes Spent Total Time Spent with Patient: Total time spent is greater than 50% in coordination of care (as documented) at patient's floor/unit and/or counseling patient: Coding Level of Care Code 18037 Initial Inpt Care Lvl 3 Diagnoses Acute hyperkalemia E87.5 BALA (acute kidney injury) N17.9 Weakness R53.1 Hematuria R31.9 Bladder cancer C67.9 Hypertension I10 Microcytic anemia D50.9
[2021-08-14 16:31] LABS: BUN Creatinine Ratio 19.1 (10-20); Blood Urea Nitrogen 43 mg/dl (7-18); Calcium 7.6 mg/dl (8.5-10.1); Carbon Dioxide 20 mmol/L (21-32); Chloride 110 mmol/L (98-107); Est GFR (African American) 22.3 ml/min; Est GFR (Non-African American) 19.2 ml/min; Glucose 282 mg/dl (70-99); Potassium 5.8 mmol/L (3.5-5.1); Sodium 135 mmol/L (136-145)
[2021-08-14] MEDS ORDERED: SODIUM BICARBONATE 8.4% 150 MEQ in DEXTROSE 5% 1,000 ML IV SCH (16:45)
--- NOTE | 2021-08-14 17:32 | Electrocardiogram Report ---
Test Reason : Blood Pressure : / mmHG Vent. Rate : 066 BPM Atrial Rate : 066 BPM P-R Int : 168 ms QRS Dur : 072 ms QT Int : 398 ms P-R-T Axes : 059 019 024 degrees QTc Int : 417 ms Normal sinus rhythm Normal ECG When compared with ECG of 23-JUL-2021 09:18, Non-specific change in ST segment in Lateral leads Confirmed by Roc Boyer ([id number]) on 08/14/2021 5:32:36 PM Referred By: REFERRED SELF Confirmed By:Matheus Boyer
[2021-08-14] MEDS ORDERED: POLYETHYLENE (MIRALAX) 17 GM PACK PO PRN (18:31)
[2021-08-14] MEDS ORDERED: ONDANSETRON INJ 2 MG/ML 2 ML VIAL IV PRN (18:31)
[2021-08-14] MEDS ORDERED: ACETAMINOPHEN 325 MG TAB PO PRN (18:31)
[2021-08-14] MEDS ORDERED: oxyCODONE HCL IR 5 MG TAB (IMMEDIATE RELEASE) PO PRN (18:31)
[2021-08-14 18:50] LABS: Appearance Urine Cloudy (Clear); Bilirubin Urine Negative (Negative); Blood Urine 3+ (Negative); Color Urine Red; Glucose Urine UA Negative (Negative); Ketones Urine Negative (Negative); Leukocyte Esterase Urine 1+ (Negative); Nitrite Urine Negative (Negative); Protein Urine 2+ (Negative); Urobilinogen Urine Negative (Negative); pH Urine 5.5 (4.5-7.5)
[2021-08-14 18:51] LABS: RBC Urine >30 /hpf (0-4)
[2021-08-14 18:52] LABS: Bacteria Urine Negative (Negative); Epithelial Cell Urine 0-5 /lpf (0-5); WBC Urine >30 /hpf (0-5)
[2021-08-14 19:08] LABS: Potassium Random Urine 31.9 mmol/L
[2021-08-14 20:42] LABS: BUN Creatinine Ratio 16.4 (10-20); Blood Urea Nitrogen 48 mg/dl (7-18); Calcium 9.4 mg/dl (8.5-10.1); Carbon Dioxide 18 mmol/L (21-32); Chloride 111 mmol/L (98-107); Est GFR (African American) 16.4 ml/min; Est GFR (Non-African American) 14.1 ml/min; Glucose 95 mg/dl (70-99); Potassium 6.6 mmol/L (3.5-5.1); Sodium 137 mmol/L (136-145)
[2021-08-14] MEDS ORDERED: DEXTROSE 50% 50 ML SYRINGE IV STA (20:54)
[2021-08-14] MEDS ORDERED: CALCIUM GLUCONATE 10% 1,000 MG in SODIUM CHLORIDE 0.9% 50 ML IV STA (21:05)
[2021-08-14] MEDS ORDERED: INSULIN HUMAN REGULAR PER UNIT 10 UNITS in SYRINGE 9.9 ML IV STA (21:06)
[2021-08-14 23:03] LABS: BUN Creatinine Ratio 15.4 (10-20); Blood Urea Nitrogen 46 mg/dl (7-18); Calcium 8.9 mg/dl (8.5-10.1); Carbon Dioxide 20 mmol/L (21-32); Chloride 109 mmol/L (98-107); Est GFR (African American) 15.9 ml/min; Est GFR (Non-African American) 13.7 ml/min; Glucose 100 mg/dl (70-99); Potassium 6.5 mmol/L (3.5-5.1); Sodium 136 mmol/L (136-145)
[2021-08-14] MEDS: GABAPENTIN 400 MG CAP PO SCH (23:10)
[2021-08-15] MEDS ORDERED: POLYETHYLENE (MIRALAX) 17 GM PACK PO PRN (00:37)
[2021-08-15] MEDS ORDERED: ALBUTEROL 0.083% NEBU SOLN 3 ML VIAL NEB STA (00:49)
[2021-08-15] MEDS ORDERED: SODIUM POLYSTYRENE SULFONATE 15G/60ML SUSP PO STA (00:50)
[2021-08-15 02:27] LABS: Basophils # (auto) 0.02 K/uL (0-0.2); Basophils % (auto) 0.2 %; Eosinophils # (auto) 0.05 K/uL (0-0.5); Eosinophils % (auto) 0.5 %; Hemoglobin 8.2 g/dL (12.0-16.0); Immature Granulocytes # (auto) 0.03 K/uL (0.00-0.02); Immature Granulocytes % (auto) 0.3 %; Lymphocytes # (auto) 1.31 K/uL (1.2-3.4); Lymphocytes % (auto) 13.4 %; Mean Corpuscular Hemoglobin 21.4 pg (25-34); Mean Corpuscular Hgb Conc 30.4 g/dL (32-36); Mean Corpuscular Volume 70.5 fL (80-100); Mean Platelet Volume 9.2 fL (7.4-10.4); Monocytes # (auto) 1.56 K/uL (0.11-0.59); Neutrophils % (auto) 69.6 %; Platelet Count 435 K/uL (130-400); RDW Standard Deviation 58.5 fL (36.4-46.3); Red Blood Count 3.83 M/uL (4.2-5.4); White Blood Count 9.77 K/uL (4.8-10.8)
[2021-08-15 02:38] LABS: Alanine Aminotransferase 9 U/L (12-78); Albumin Level 1.9 gm/dl (3.4-5.0); Aspartate Aminotransferase 18 U/L (15-37); BUN Creatinine Ratio 18.4 (10-20); Blood Urea Nitrogen 48 mg/dl (7-18); Calcium 9.1 mg/dl (8.5-10.1); Carbon Dioxide 24 mmol/L (21-32); Chloride 108 mmol/L (98-107); Est GFR (African American) 18.7 ml/min; Est GFR (Non-African American) 16.2 ml/min; Glucose 56 mg/dl (70-99); Magnesium 2.6 mg/dl (1.8-2.4); Potassium 5.7 mmol/L (3.5-5.1); Sodium 134 mmol/L (136-145)
[2021-08-15 02:45] LABS: Anisocytosis Present; Hypochromasia Present; Target Cells 1+
[2021-08-15 02:47] LABS: Albumin Globulin Ratio 0.3 (0.9-2); Alkaline Phosphatase 96 U/L (45-117); Bilirubin,Total 0.3 mg/dl (0.2-1); Ferritin 409.3 ng/ml (8-388); Iron 17 mcg/dl (35-150); Total Iron Binding Capacity 162 mcg/dl (250-450); Total Protein 7.9 gm/dl (6.4-8.2); Transferrin 105 mg/dl (200-360); Transferrin (FE) Percent Satur 11 % (15-50)
[2021-08-15] MEDS: MEGESTROL ACETATE 40 MG TAB PO SCH ×2 (09:17→20:59)
[2021-08-15] MEDS: DOCUSATE SODIUM/SENNA 50/8.6MG TAB PO SCH (09:17)
[2021-08-15] MEDS: METOPROLOL TARTRATE 100 MG TAB PO SCH (09:18)
[2021-08-15] MEDS: CHECK fentaNYL PATCH PLACEMENT SCH ×3 (10:42→23:33)
--- NOTE | 2021-08-15 12:28 | Nephrology Consultation ---
Date of Consultation August 15, 2021 Assessment & Plan (1) BALA (acute kidney injury): (2) Acute hyperkalemia: (3) Hematuria: (4) Bladder cancer: 81 y o F with h/o metastatic bladder cancer with right-sided hydroureteronephrosis and progressive worsening of renal function over last few weeks. Admitted with creatinine of 3.0, hyperkalemia, potassium was 7.1. Potassium improved to 5.6 and creatinine slightly improved to 2.6. Has Clark catheter in place with urine output more than 100 mL. Blood pressure has been stable. Denies any further episode of shortness of breath. --Renal ultrasound currently pending. If there is persistent significant right- sided hydroureteronephrosis, may need to be transferred to a facility where she can have nephrostomy tube placement. if renal function worsen, hyperkalemia persist, would also recommend palliative care involvement regarding goals of care, she would not be optimum candidate for long-term dialysis considering advanced metastatic cancer. -- monitor urine output and electrolyte -- maintain adequate hydration, avoid nephrotoxic medications. -- spoke with daughter Faby ) over telephone, she agrees that dialysis will not be the best option for her mom with her overall health but she is open to transferring to tertiary care facility such as [facility] if nephrostomy tube is needed. Will follow Thank you for allowing me to participate in your patient's care. It was a pleasure to see Urvashi. History of Present Illness Reason for Consultation: Acute kidney injury and hyperkalemia. Attending Physician: Joel Sheridan History of Present Illness Ms. 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 EMR records were reviewed in detail during visit. Urvashi presented to ER yesterday with the c/o SOB and inability to lay flat. Most of the informations were gathered from record review and review of ER and hospitalist note as well as discussion with her daughter over telephone. On admission CXR showed no pulmonary congestion. Lab showed BALA with creatinine 2.7 and hyperkalemia, potassium was 7.1. At baseline she had normal renal function, baseline creatinine 1.0. However, over last few weeks renal function has been slowly worsening, creatinine was 1.2 on 07/04/2021 which progressively worsened and on admission creatinine was 3.0. She receive IV fluid and creatinine slightly improved to 2.6. Received insulin, D50, Kayexalate 30 g and potassium improved from 7.1 to 5.6. No recent h/o N/V.US with 2+Proteinuria, 3+ blood, >30 RBC and WBC /hpf. No bacteruria. 2D echo showed EF 60 to 65%, no wall motion abnormality. She was initially noted to have hematuria in September 2019 which progressively worsened and CT abdomen pelvis and June 2020 showed uterine mass subsequently she had biopsy and eventually diagnosed with metastatic bladder cancer probably mullerian origin. She initially declined any chemotherapy treatment when her cancer was in an earlier stage in 2019 as per the daughter, and then recently returned to follow-up with oncology due to worsening pain. PET scan on showed moderate right-sided hydroureteronephrosis, likely secondary to obstruction from pelvic tumor. Currently she seems comfortable, no SOB, denies any pain BP acceptable. Allergies Allergy/AdvReac Type Severity Reaction Status Date / Time broccoli Allergy Rash Unverified 08/14/21 17:55 Home Medications Medication Instructions Recorded Confirmed Type oxycodone 5 mg tablet (Roxicodone) 5 mg PO Q8H PRN #21 tab 06/13/21 08/14/21 Rx metoprolol tartrate 100 mg tablet 100 mg PO DAILY #90 tab 06/14/21 08/14/21 Rx Prune Juice 4 oz PO BID PRN 08/14/21 08/14/21 History fentanyl 12 mcg/hr transdermal 12 mcg TRANSDERMAL .Q72H 08/14/21 08/14/21 History patch megestrol 40 mg tablet 80 mg PO BID 08/14/21 08/14/21 History polyethylene glycol 3350 17 17 g PO DAILY PRN 08/14/21 08/14/21 History gram/dose oral powder (Miralax) prochlorperazine maleate 10 mg 10 mg PO QID PRN 08/14/21 08/14/21 History tablet sennosides 8.6 mg-docusate sodium 3 tab-cap PO DAILY 08/14/21 08/14/21 History 50 mg tablet (Senna-S) Patient History Medical History Bladder cancer Hematuria Hypertension Microcytic anemia Pelvic mass in female Sciatica Surgical History Hx of cataract surgery Total knee replacement status Family History Denies family history of Ovarian cancer Prostate cancer Myocardial infarction Breast cancer Lung cancer Colorectal cancer Stroke Social History Smoking Status: Never smoker Second Hand Exposure: No; Do You Dip or Chew Tobacco: No; Hx Alcohol Use: No Hx Substance Use: No Preferred Language: Belarusian Communication Ability: Effective Communication Tools: Language Line Infection Prevention Practitioner Visual Impairment: No Limitations Hearing Ability: Normal Infection Prevention Practitioner Required: No Beliefs That Will Affect Care: None marital status: / Current Living Situation: Family Current Living Situation Comment: Faby current occupational status: retired current occupation: [employer] worker How many Children do You have: 1 How many Children do You have Comment: 2-girls 1-Boy Other Information That Helps Us Care for You: No Feels Safe at Home: Yes Safety Concerns: Feels Safe At This Time Assistive Devices: Walker Review of Systems Review of Systems: Detail ROS was done and otherwise unremarkable except mentioned above. Physical Exam Constitutional: WD/WN, vitals as above no acute distress Eyes: + anicteric sclerae ENMT: Ears: no hearing impairment and no external ear abnormality Neck: normal visual inspection Thyroid: no thyromegaly Respiratory: normal respiratory effort; no respiratory distress and no cough Auscultation: + diminished lung sounds Cardiovascular: Rate/Rhythm: regular rate and regular rhythm Heart Sounds: normal S1 and normal S2 Extremities: no edema Gastrointestinal (Abdomen): Inspection/Auscultation: abdomen normal to inspection and normal bowel sounds Percussion/Palpation: abdomen soft; abdomen nontender Musculoskeletal: Extremities: extremities normal to inspection Skin: normal turgor; no rashes Neurologic: no focal motor deficits and not confused Psychiatric: Orientation: alert and oriented x 3 Affect: euthymic affect Results & Data ([facility]) Vital Signs (Past 12 Hours) Vital Signs Temp Pulse Resp BP Pulse Ox 08/15/21 08:00 37 C 95 H 28 H 111/75 96 08/15/21 05:21 36.8 C 92 H 159/84 H 92 08/15/21 05:14 36.8 C 90 15 159/84 H 100 08/15/21 01:13 83 22 99 PG Care Time/CCT Total # of Minutes Spent Total Time Spent with Patient: Total time spent is greater than 50% in coordination of care (as documented) at patient's floor/unit and/or counseling patient: Coding Level of Care Code 73550 Initial Inpt Care Lvl 3 Diagnoses BALA (acute kidney injury) N17.9 Acute hyperkalemia E87.5 Hematuria R31.9 Bladder cancer C67.9
--- NOTE | 2021-08-15 12:41 | XCELERA ---
[id number]
--- NOTE | 2021-08-15 13:20 | Palliative Care Consultation ---
Date of Consultation August 15, 2021 Assessment & Plan (1) Palliative care encounter: Ms. Phipps is an 81 year old Egyptian female who presented to the [facility] with worsening kidney function and worsening SOB. Additional PMH includes: vaginal bleeding related to a carcinomatosis. A CT was performed and a mass was occluding her right ureter . Nephrology has evaluated the patient and a stent was not indicated, but depending on how things progress with the hydroureteronephrosis, a nephrostomy tube could be considered for a palliative approach. Palliative medicine was consulted to discuss overall goals of care. I met with Desire at her bedside, she was sitting in her chair. She was able to talk with me fairly well and declined using a director of outside sales phone. She indicated that she was having difficulty with breathing, which I recognized in talking with her, using diaphragmatic muscles.We talked about her disease progression, and she did verbalize that she did not want to pursue chemotherapy. I discussed her visit with Nephrology earlier and she agreed for me to discuss further with her daughter Faby, who I spoke with at length on the phone at [phone]. Faby agreed with her mother to not pursue chemotherapy due to her progressive weakness. Faby describes that she has had dysphagia and decreased po intake. She recognizes that her renal function is worsening and does NOT want hemodialysis. There was some discussion earlier with Nephrology regarding the possibility of a nephrostomy tube placement as a palliative measure. If indicated, she would like to pursue with such at [facility] with a goal to return home with hospice services. Hospitalist aware. Also discussed with Nephrology - plan for continued treatment here until tomorrow for which Nephro will determine if a neph tube would be necessary or if a return home with hospice from here would allign with the patients goals. (2) Dyspnea: Pt had Roxicodone 5 mg PO Q8 PRN ordered. One dose given and air hunger relief present. Discussed liquid form which the patient and her daughter were receptive to. Roxicodone 5 mg SL Q 6 PRN ordered. (3) Pain: Generalized pain noted in her abdomen. She has a Fentanyl patch in place 12 mcg. Will increase to 25 mcg starting tomorrow. Palliative will monitor. (4) Carcinomatosis: History of Present Illness Reason for Consultation: goals of care Requesting Physician: Dr. Reddy Attending Physician: Joel Sheridan History of Present Illness Ms. Phipps is an 81 year old Egyptian female who presented to the [facility] with worsening kidney function and worsening SOB. Additional PMH includes: vaginal bleeding related to a carcinomatosis. A CT was performed and a mass was occluding her right ureter . Nephrology has evaluated the patient and a stent was not indicated, but depending on how things progress with the hydroureteronephrosis, a nephrostomy tube could be considered for a palliative approach. Palliative medicine was consulted to discuss overall goals of care. Please see A/P for further details. Thanks for involving palliative medicine with this individual. Allergies Allergy/AdvReac Type Severity Reaction Status Date / Time broccoli Allergy Rash Unverified 08/14/21 17:55 Home Medications Medication Instructions Recorded Confirmed Type oxycodone 5 mg tablet (Roxicodone) 5 mg PO Q8H PRN #21 tab 06/13/21 08/14/21 Rx metoprolol tartrate 100 mg tablet 100 mg PO DAILY #90 tab 06/14/21 08/14/21 Rx Prune Juice 4 oz PO BID PRN 08/14/21 08/14/21 History fentanyl 12 mcg/hr transdermal 12 mcg TRANSDERMAL .Q72H 08/14/21 08/14/21 History patch megestrol 40 mg tablet 80 mg PO BID 08/14/21 08/14/21 History polyethylene glycol 3350 17 17 g PO DAILY PRN 08/14/21 08/14/21 History gram/dose oral powder (Miralax) prochlorperazine maleate 10 mg 10 mg PO QID PRN 08/14/21 08/14/21 History tablet sennosides 8.6 mg-docusate sodium 3 tab-cap PO DAILY 08/14/21 08/14/21 History 50 mg tablet (Senna-S) Patient History Medical History (Updated 08/15/21 @ 19:01 by CHINA Bermudez) Bladder cancer Carcinomatosis Dyspnea Hematuria Hypertension Microcytic anemia Pain Palliative care encounter Pelvic mass in female Sciatica Surgical History Hx of cataract surgery Total knee replacement status Family History Denies family history of Ovarian cancer Prostate cancer Myocardial infarction Breast cancer Lung cancer Colorectal cancer Stroke Social History Smoking Status: Never smoker Second Hand Exposure: No; Do You Dip or Chew Tobacco: No; Hx Alcohol Use: No Hx Substance Use: No Preferred Language: Romansh Communication Ability: Effective Communication Tools: Language Line Olive Packer Visual Impairment: No Limitations Hearing Ability: Normal Olive Packer Required: No Beliefs That Will Affect Care: None marital status: / Current Living Situation: Family Current Living Situation Comment: Faby current occupational status: retired current occupation: [employer] worker How many Children do You have: 1 How many Children do You have Comment: 2-girls 1-Boy Other Information That Helps Us Care for You: No Feels Safe at Home: Yes Safety Concerns: Feels Safe At This Time Assistive Devices: Walker Review of Systems Review of Systems: Antelope System Assessment Scale: Pain: 2/3 SOB: 2/3 Anxiety: 1/3 Lack of Appetite: 1/3 Palliative Performance Scale: 40% Physical Exam Constitutional: + frail appearing ENMT: Mouth: + dry oral mucous membranes Respiratory: + uses accessory muscles Auscultation: + diminished lung sounds Cardiovascular: Rate/Rhythm: regular rate and regular rhythm Heart Sounds: normal S1 and normal S2 Extremities: normal capillary refill Gastrointestinal (Abdomen): Inspection/Auscultation: abdomen normal to inspection Percussion/Palpation: abdomen soft Skin: + dry skin Psychiatric: Orientation: alert and oriented x 3 Results & Data ([facility]) Vital Signs (Past 12 Hours) Vital Signs Temp Pulse Resp BP Pulse Ox 08/15/21 12:00 36.5 C 83 28 H 117/96 99 08/15/21 08:00 37 C 95 H 28 H 111/75 96 08/15/21 05:21 36.8 C 92 H 159/84 H 92 08/15/21 05:14 36.8 C 90 15 159/84 H 100 PG Care Time/CCT Total # of Minutes Spent Total Time Spent with Patient: Total time spent is greater than 50% in coordination of care (as documented) at patient's floor/unit and/or counseling patient: 70 minutes Coding Level of Care Code 96744 Initial Inpt Care Lvl 3 Diagnoses Palliative care encounter Z51.5 Dyspnea R06.00 Pain R52 Carcinomatosis C80.0 Time Spent (min) 70
--- NOTE | 2021-08-15 14:50 | Ultrasound Report ---
ULTRASOUND KIDNEYS AND BLADDER CLINICAL HISTORY: Acute renal insufficiency. COMPARISON STUDY: Abdominal CT dated 06/13/2021. TECHNIQUE: Real-time, grayscale, and color flow sonography of the kidneys and bladder is performed. I mages are reviewed in the transverse and longitudinal planes. FINDINGS: Kidneys: The kidneys are atrophic. Echotexture is normal. The right kidney measures 8.9 cm and the le ft kidney measures 10.5 cm. Mild to moderate hydronephrosis is seen on the right. There is no left-si ded hydronephrosis. No shadowing renal calculi are identified. There is no sonographic evidence of co ntour deforming renal mass lesion. No perinephric fluid is identified. Bladder: The bladder is decompressed around a Clark catheter and could not be evaluated. Upper abdomen: There is a small volume of abdominopelvic ascites IMPRESSION: 1. The kidneys are atrophic and there is mild to moderate right-sided hydronephrosis. 2. No hydronephrosis is seen in the left. 3. The bladder was decompressed around a Clark catheter and could not be evaluated. 4. Small volume of abdominopelvic ascites. ACT 112: Negative or not required by law. Electronically signed by: Wilberto Reinoso M.D. 08/15/2021 2:49 PM
--- NOTE | 2021-08-15 14:54 | XRay Report ---
KUB CLINICAL HISTORY: Abdominal distention. FINDINGS: 3 AP, portable, supine abdominal radiographs are correlated with abdominal CT dated 06/13/20. There is a nonobstructed abdominal bowel gas pattern. No evidence of intraperitoneal free air is seen on these supine images. There are no abnormal abdominal calcifications. The skeletal structures are osteopenic. Advanced arthritic change and deformity is seen in the left hip. IMPRESSION: Nonobstructed abdominal bowel gas pattern. Electronically signed by: Wilberto Reinoso M.D. 08/15/2021 2:53 PM
[2021-08-15] MEDS ORDERED: fentaNYL 25 MCG/HR TDSY TD SCH (17:30)
[2021-08-15] MEDS: GABAPENTIN 400 MG CAP PO SCH (20:59)
--- NOTE | 2021-08-15 21:10 | Hospitalist Progress Note ---
Date of Service August 15, 2021 Assessment & Plan (1) Acute hyperkalemia: Plan: On admission Patient with profound hyperkalemia secondary to acute kidney injury as below Potassium 7.3 on arrival-in the ER, received IV calcium gluconate, insulin 10 units and D50, albuterol, Kayexalate 30 g p.o. Repeat potassium still elevated-we will repeat insulin and D50 now, start sodium bicarbonate drip On 08/15 Potassium improved to 5.6 Creatinine improved to 2.6. Likely due to BALA from hydronephrosis. Patient may require transfer to tertiary center for nephrostomy tube placement. This was held due to patient improving today. Follow serial labs and continue to treat as needed with either insulin/D50, albuterol nebulizer, repeat Kayexalate, and calcium gluconate -Follow on telemetry Low potassium diet (2) BALA (acute kidney injury): Plan: Creatinine rising over the last couple of weeks PET-CT scan recently with hydronephrosis on the right secondary to compression from pelvic mass I discussed the case with urology on the phone who does not think that a stent would be helpful as the bladder mass would likely continue to occlude the ureter We will place Clark catheter-there is a chance that she will have hematuria with this worsened because of her pelvic mass eroding into her bladder Family is agreeable for transfer to tertiary center for nephrostomy tubes, however patient's labs are improving today. Ultimate goal is to stabilize patient so she can be moved to hospice. If transferred, and nephrostomy tubes are placed then patient will be discharged to hospice. Appreciate pallaitive care and nephro consult. -Renally dose medications and avoid nephrotoxins (3) Weakness: Plan: Secondary to metastatic cancer and worsening renal failure (4) Hematuria: Plan: Secondary to bladder mass (5) Bladder cancer: Plan: Stage IV, metastatic disease Was supposed to start [facility] this [facility], but daughter fears she is too weak to withstand chemotherapy Patient reports she wanted to just try it at least once, but is accepting of if it occurs Patient also reports "I hate pain and I do not want any pain"-I confirmed with her that she would want to be kept comfortable if her condition worsened Appreciate input from palliative care -Continue fentanyl patch and oxycodone as needed for pain Continue bowel regimen for opioid-induced constipation Continue Megace for appetite stimulation (6) Hypertension: Plan: Blood pressures are mildly elevated Continue home metoprolol (7) Microcytic anemia: Plan: Hemoglobin stable at 9.5, microcytic Secondary to chronic hematuria and vaginal bleeding from metastatic cancer Has received IV iron treatments at the cancer center in the recent past Iron studies: Anemia of chronic disease(inflammation) Plan: DVT prophylaxis-SCDs only given hematuria as well as chronic vaginal bleeding and anemia Disposition-admit to PCU DNR/DNI, prognosis is guarded Admission and Anticipated Discharge Date Admission Date: August 14, 2021 Subjective 81 yo female is lying in bed with no new complaints. She reports no new symptoms. Her daughter is at bedside and is updated. Review of Systems Review of Systems: All systems reviewed & are unremarkable except as noted in HPI & below Physical Exam Physical Exam: Constitutional: WD/WN, vitals as above Eyes: PERRL, conjunctivae normal, anicteric sclerae ENMT: external ear and nose normal, oropharynx normal Neck: trachea midline, no thyromegaly Respiratory: normal respiratory effort, lungs clear to auscultation (With some upper airway wheezes) Cardiovascular: RRR, no murmur, no edema Chest (Breasts): Chest: normal inspection of chest Gastrointestinal (Abdomen): Inspection/Auscultation: + abdomen distended (Mild) and normal bowel sounds Percussion/Palpation: abdomen soft; abdomen nontender Musculoskeletal: Extremities: extremities normal to inspection; no cyanosis and no clubbing Skin: no rashes, warm and dry Neurologic: moves all extremities and awake; no focal motor deficits Psychiatric: A+Ox3, euthymic affect Results & Data Results & Data ([facility]) Vital Signs (Past 12 Hours) Vital Signs Temp Pulse Resp BP Pulse Ox 08/15/21 19:00 36.8 C 84 22 124/71 97 08/15/21 17:00 36.6 C 82 18 126/78 95 08/15/21 12:00 36.5 C 83 28 H 117/96 99 PG Care Time/CCT Total # of Minutes Spent Total Time Spent with Patient: Total time spent is greater than 50% in coordination of care (as documented) at patient's floor/unit and/or counseling patient: Coding Level of Care Code 85398 Subseq Hosp Care Lvl 3 Diagnoses Acute hyperkalemia E87.5 BALA (acute kidney injury) N17.9 Weakness R53.1 Hematuria R31.9 Bladder cancer C67.9 Hypertension I10 Microcytic anemia D50.9 Time Spent (min) 35
[2021-08-16 05:32] LABS: Hematocrit (blood only) 29.4 % (37-47); Hemoglobin 8.8 g/dL (12.0-16.0); Mean Corpuscular Hemoglobin 21.5 pg (25-34); Mean Corpuscular Hgb Conc 29.9 g/dL (32-36); Mean Corpuscular Volume 71.7 fL (80-100); Mean Platelet Volume 9.2 fL (7.4-10.4); Nucleated RBC # (auto) 0.03 K/uL (0-0); Nucleated RBC % (auto) 0.3 %; Platelet Count 389 K/uL (130-400); RDW Coefficient of Variation 23.1 % (11.5-14.5); RDW Standard Deviation 59.5 fL (36.4-46.3); White Blood Count 9.68 K/uL (4.8-10.8)
[2021-08-16 06:13] LABS: BUN Creatinine Ratio 16.3 (10-20); Calcium 8.9 mg/dl (8.5-10.1); Creatinine Clr Calc Pharmacy 16.6 ml/min; Est GFR (African American) 16.6 ml/min; Est GFR (Non-African American) 14.3 ml/min; Potassium 6.4 mmol/L (3.5-5.1)
[2021-08-16] MEDS ORDERED: DEXTROSE 50% 50 ML SYRINGE IV STA (06:29)
[2021-08-16] MEDS ORDERED: CALCIUM GLUCONATE 10% 1,000 MG in SODIUM CHLORIDE 0.9% 50 ML IV ONE (06:45)
[2021-08-16] MEDS ORDERED: INSULIN HUMAN REGULAR PER UNIT 10 UNITS in SYRINGE 9.9 ML IV ONE (06:45)
[2021-08-16] MEDS ORDERED: PATIROMER CALCIUM SORBITEX 8.4 GM PACK PO STA (08:23)
[2021-08-16] MEDS: CHECK fentaNYL PATCH PLACEMENT SCH ×2 (08:27→16:51)
[2021-08-16] MEDS: MEGESTROL ACETATE 40 MG TAB PO SCH (08:52)
[2021-08-16] MEDS: METOPROLOL TARTRATE 100 MG TAB PO SCH (08:53)
[2021-08-16] MEDS: DOCUSATE SODIUM/SENNA 50/8.6MG TAB PO SCH (08:53)
[2021-08-16] MEDS ORDERED: fentaNYL 12 MCG/HR TDSY TD SCH (09:00)
[2021-08-16] MEDS ORDERED: CEFEPIME 2,000 MG in SYRINGE 0 ML IV SCH (10:00)
--- NOTE | 2021-08-16 10:36 | Nephrology Progress Note ---
Date of Service August 16, 2021 Assessment & Plan (1) BALA (acute kidney injury): (2) Acute hyperkalemia: (3) Hematuria: (4) Bladder cancer: Plan: 81 y o F with h/o metastatic bladder cancer with right-sided hydroureteronephrosis and progressive worsening of renal function over last few weeks. Admitted with creatinine of 3.0, hyperkalemia, potassium was 7.1. Potassium improved to 5.6 and creatinine slightly improved to 2.6. Has Clark catheter in place with urine output more than 100 mL. Blood pressure has been stable. Renal function continues to worsen, low UO although Renal ultrasound showed only mild to moderate rt sided hydronephrosis. K again high. --will get CT A/P without contrast for better assessment of post renal obstruction with bladder mass as renal function worsened and UO low. . If there is no significant right-sided hydroureteronephrosis but UO low, renal function continues to worsen, ideally hospice care should be considered. If obstruction is significant then she may need to be transferred to a facility where she can have nephrostomy tube placement. 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 She would not be optimum candidate for long-term dialysis considering advanced metastatic cancer. -- monitor urine output and electrolyte -- maintain adequate hydration, avoid nephrotoxic medications. 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 Admission and Anticipated Discharge Date Admission Date: August 14, 2021 Subjective Gladice was seen and evaluated in ER holding room. She seemed lethargic, barely opening her eyes. BP was OK, on NC O2. Review of Systems Review of Systems: Detail ROS was not possible due to less responsiveness. Physical Exam Constitutional: WD/WN, vitals as above + ill appearing and + lethargic; no acute distress Respiratory: normal respiratory effort Auscultation: + diminished lung sounds Cardiovascular: Rate/Rhythm: regular rate and regular rhythm Heart Sounds: normal S1 and normal S2 Extremities: no edema Skin: normal turgor; no rashes Neurologic: minimally responsive Results & Data ([facility]) Vital Signs (Past 12 Hours) Vital Signs Temp Pulse Resp BP BP Pulse Ox 08/16/21 07:37 112 H 24 127/103 H 95 08/16/21 05:28 117/94 08/16/21 04:40 36.5 C 97 H 20 141/113 H 97 08/15/21 23:34 36.6 C 113/92 08/15/21 23:13 83 20 99 PG Care Time/CCT Total # of Minutes Spent Total Time Spent with Patient: Total time spent is greater than 50% in coordination of care (as documented) at patient's floor/unit and/or counseling patient: Coding Level of Care Code 51844 Subseq Hosp Care Lvl 3 Diagnoses BALA (acute kidney injury) N17.9 Acute hyperkalemia E87.5 Hematuria R31.9 Bladder cancer C67.9
[2021-08-16] MEDS ORDERED: DEXTROSE 50% 50 ML SYRINGE IV ONE (10:42)
[2021-08-16] MEDS: oxyCODONE HCL SOLN 5 MG/5 ML UDC PO PRN ×2 (10:59→21:05)
[2021-08-16] MEDS ORDERED: BUMETANIDE 4 MG in SYRINGE 0 ML IV ONE (11:30)
[2021-08-16] MEDS ORDERED: ALBUTEROL 0.083% NEBU SOLN 3 ML VIAL NEB STA (11:34)
[2021-08-16] MEDS ORDERED: LORazepam 0.5 MG TAB PO PRN (12:31)
[2021-08-16] MEDS ORDERED: ONDANSETRON 4 MG OD TAB SL PRN (12:31)
[2021-08-16] MEDS ORDERED: LORazepam 0.5 MG/1 ML VIAL IV PRN ×2 (12:31)
[2021-08-16] MEDS ORDERED: HYDROmorphone INJ 0.5 MG/0.5 ML SYR IV PRN (12:31)
--- NOTE | 2021-08-16 12:37 | Hospitalist Progress Note ---
Date of Service August 16, 2021 Assessment & Plan (1) Acute hyperkalemia: Plan: On admission Patient with profound hyperkalemia secondary to acute kidney injury as below Potassium 7.3 on arrival-in the ER, received IV calcium gluconate, insulin 10 units and D50, albuterol, Kayexalate 30 g p.o. Repeat potassium still elevated-we will repeat insulin and D50 now, start sodium bicarbonate drip Potassium improved somewhat on 08/15 but worsened again on 08/16 Acute kidney injury continues to worsen Was given multiple rounds of IV insulin and D50, albuterol, Veltassa, calcium gluconate, but to no avail Also gave Bumex 4 mg IV x1 Patient and her family do not wish to pursue dialysis or nephrostomy tubes and wished to pursue comfort measures only at this time Discontinue all blood draws, and focus on comfort measures Start IV Dilaudid 0.25 mg IV every 4 hours as needed, IV Ativan as needed for anxiety or agitation, atropine drops as needed for secretions, p.o. oxycodone as needed Maintain Clark catheter for comfort (2) BALA (acute kidney injury): Plan: Creatinine rising over the last couple of weeks PET-CT scan recently with hydronephrosis on the right secondary to compression from pelvic mass I discussed the case with urology on the phone who does not think that a stent would be helpful as the bladder mass would likely continue to occlude the ureter Placed Clark catheter and still no improvement Renal ultrasound performed which showed mild to moderate hydronephrosis only on the right-this does not explain her worsening renal function Worsening renal function may be secondary to metastatic cancer perhaps to the kidneys? Nephrostomy tubes would likely be futile Given the patient was in significant worsening respiratory distress, transition to comfort measures only as above (3) Weakness: Plan: Secondary to metastatic cancer and worsening renal failure (4) Hematuria: Plan: Secondary to bladder mass (5) Bladder cancer: Plan: Stage IV, metastatic disease Was supposed to start [facility] this [facility], but daughter fears she is too weak to withstand chemotherapy Patient and family decided not to pursue chemotherapy and to transition to comfort measures as above Discussed her care with her oncologist on the phone (6) Hypertension: Plan: Discontinue metoprolol (7) Microcytic anemia: Plan: Hemoglobin stable at 9.5, microcytic Secondary to chronic hematuria and vaginal bleeding from metastatic cancer Has received IV iron treatments at the cancer center in the recent past Iron studies: Anemia of chronic disease(inflammation) Plan: Disposition-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 She did receive some oxycodone for respiratory distress earlier. She would wake up occasionally and answer some questions. Denies abdominal pain. She making very little urine and some of it was leaking around the Clark catheter. Her renal function continued to worsen and her hyperkalemia worsened. I had a long conversation with the patient, her daughter, and her niece at the bedside and decision was made to pursue comfort measures only. I also discussed her care with nephrology as well as the patient's oncologist on the phone. All are in agreement that pursuing hospice is appropriate at this time. Review of Systems Review of Systems: Unobtainable due to cognitive status Physical Exam Constitutional: WD/WN, vitals as above + in distress (Mild with tachypnea and wheezing) Neck: trachea midline, no thyromegaly Respiratory: + labored breathing and + tachypneic Auscultation: + wheezes Cardiovascular: Rate/Rhythm: regular rhythm and + tachycardic Extremities: + edema Chest (Breasts): Chest: normal inspection of chest Gastrointestinal (Abdomen): Inspection/Auscultation: + abdomen distended (Mild) and normal bowel sounds Percussion/Palpation: abdomen soft; abdomen nontender Musculoskeletal: Extremities: extremities normal to inspection; no cyanosis and no clubbing Skin: no rashes, warm and dry Neurologic: moves all extremities and awake; no focal motor deficits Psychiatric: Orientation: + not alert and + not oriented x 3 Genitourinary: Clark catheter in place with small amount of bloody urine Results & Data Results & Data ([facility]) Vital Signs (Past 12 Hours) Vital Signs Temp Pulse Resp BP BP Pulse Ox 08/16/21 11:32 37.1 C 116 H 28 H 116/97 97 08/16/21 07:37 112 H 24 127/103 H 95 08/16/21 05:28 117/94 08/16/21 04:40 36.5 C 97 H 20 141/113 H 97 Laboratory Results 08/16/21 08/16/21 08/16/21 Range/Units 12:16 12:14 11:13 WBC (4.8-10.8) K/uL RBC (4.2-5.4) M/uL Hgb (12.0-16.0) g/dL Hct (37-47) % MCV (80-100) fL MCH (25-34) pg MCHC (32-36) g/dL RDW Std Deviation (36.4-46.3) fL RDW Coeff of [place] (11.5-14.5) % Plt Count (130-400) K/uL MPV (7.4-10.4) fL Absolute Nucleated RBC (0-0) K/uL Nucleated RBC % (auto) % Sodium 133 L (136-145) mmol/L Potassium 5.7 H (3.5-5.1) mmol/L Chloride 103 (98-107) mmol/L Carbon Dioxide 22 (21-32) mmol/L Anion Gap 8.0 (3-11) BUN 47 H (7-18) mg/dl Creatinine 3.22 H D (0.6-1.2) mg/dl Est Cr Clr Drug Dosing 15.0 ml/min Est GFR ( Amer) 14.7 ml/min Est GFR (Non-Af Amer) 12.7 ml/min BUN/Creatinine Ratio 14.7 (10-20) Glucose 117 H (70-99) mg/dl POC Glucose 105 H 129 H (70-99) mg/dl Calcium 9.4 (8.5-10.1) mg/dl 08/16/21 08/16/21 08/16/21 Range/Units 10:51 10:34 08:09 WBC (4.8-10.8) K/uL RBC (4.2-5.4) M/uL Hgb (12.0-16.0) g/dL Hct (37-47) % MCV (80-100) fL MCH (25-34) pg MCHC (32-36) g/dL RDW Std Deviation (36.4-46.3) fL RDW Coeff of [place] (11.5-14.5) % Plt Count (130-400) K/uL MPV (7.4-10.4) fL Absolute Nucleated RBC (0-0) K/uL Nucleated RBC % (auto) % Sodium (136-145) mmol/L Potassium (3.5-5.1) mmol/L Chloride (98-107) mmol/L Carbon Dioxide (21-32) mmol/L Anion Gap (3-11) BUN (7-18) mg/dl Creatinine (0.6-1.2) mg/dl Est Cr Clr Drug Dosing ml/min Est GFR ( Amer) ml/min Est GFR (Non-Af Amer) ml/min BUN/Creatinine Ratio (10-20) Glucose (70-99) mg/dl POC Glucose 260 H 57 L* 99 (70-99) mg/dl Calcium (8.5-10.1) mg/dl 08/16/21 08/16/21 Range/Units 05:20 05:20 WBC 9.68 (4.8-10.8) K/uL RBC 4.10 L (4.2-5.4) M/uL Hgb 8.8 L (12.0-16.0) g/dL Hct 29.4 L (37-47) % MCV 71.7 L (80-100) fL MCH 21.5 L (25-34) pg MCHC 29.9 L (32-36) g/dL RDW Std Deviation 59.5 H (36.4-46.3) fL RDW Coeff of [place] 23.1 H (11.5-14.5) % Plt Count 389 (130-400) K/uL MPV 9.2 (7.4-10.4) fL Absolute Nucleated RBC 0.03 H (0-0) K/uL Nucleated RBC % (auto) 0.3 % Sodium 132 L (136-145) mmol/L Potassium 6.4 H* (3.5-5.1) mmol/L Chloride 105 (98-107) mmol/L Carbon Dioxide 24 (21-32) mmol/L Anion Gap 3.0 (3-11) BUN 47 H (7-18) mg/dl Creatinine 2.91 H (0.6-1.2) mg/dl Est Cr Clr Drug Dosing 16.6 ml/min Est GFR ( Amer) 16.6 ml/min Est GFR (Non-Af Amer) 14.3 ml/min BUN/Creatinine Ratio 16.3 (10-20) Glucose 99 (70-99) mg/dl POC Glucose (70-99) mg/dl Calcium 8.9 (8.5-10.1) mg/dl PG Care Time/CCT Total # of Minutes Spent Total Time Spent with Patient: Total time spent is greater than 50% in coordination of care (as documented) at patient's floor/unit and/or counseling patient: Coding Level of Care Code 52904 Subseq Hosp Care Lvl 3 Diagnoses Acute hyperkalemia E87.5 BALA (acute kidney injury) N17.9 Weakness R53.1 Hematuria R31.9 Bladder cancer C67.9 Hypertension I10 Microcytic anemia D50.9
[2021-08-16 12:46] LABS: BUN Creatinine Ratio 14.7 (10-20); Calcium 9.4 mg/dl (8.5-10.1); Est GFR (African American) 14.7 ml/min; Est GFR (Non-African American) 12.7 ml/min; Potassium 5.7 mmol/L (3.5-5.1)
[2021-08-16] MEDS: ATROPINE SULFATE 1% OP SOLN 5 ML BTL SL PRN ×3 (16:50→21:01)
--- NOTE | 2021-08-16 21:43 | Death Pronouncement Note ---
Date of Service August 16, 2021 Pronouncement Note Admission Date Admission Date: August 14, 2021 Date and Time of Date of : 08/16/21 Time of : 21:30 Contributing Factors (1) BALA (acute kidney injury): (2) Acute hyperkalemia: (3) Hematuria: (4) Bladder cancer: Hospital Course Hospital Course: see note Summary Additional details: Notified by nursing that patient ceased to breath at 21:30 on 08/16/21. Order placed for [id number] confirmation. Additional Data Attending/PCP notified?: No Attending physician: Kaylene Reddy MD Was code activated?: No chief bank examiner notified?: No Organ bank notified?: No Advance directives: No Resident Activity Tracking Resident Involvement: Resident Care Provided and Treatment Technician Coverage Note Care Provided: Adult Hospital Medicine
--- NOTE | 2021-08-16 22:40 | Discharge Summary ---
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 She feels like she cannot lay flat and that her abdomen is pressing up on her lungs. The patient speaks Creole, Georgian, and a little bit of Greenlandic but she is able to understand everything I am saying to her. Her daughter is at the bedside and does explain most of the history. The daughter is a nurse. She states that the patient also has frequent small amounts of urine all day long, and hematuria and vaginal bleeding. She has chronic pain in her abdomen and has known ascites and carcinomatosis. She has a fentanyl patch and takes oxycodone as needed. The patient initially had declined any chemotherapy treatment when her cancer was in an earlier stage in 2019 as per the daughter, and then recently returned to follow-up with oncology due to worsening pain. The patient does state that she wants to try chemotherapy-she is scheduled to start that later this week. Daughter has concerns that the patient will not be able to tolerate chemotherapy at all and that this will hasten her . Daughter reports that the patient is generally very weak. She also has issues with constipation but takes prune juice and MiraLAX as well as senna and has been moving her bowels fairly regularly. In the ER, she was found to have worsening acute kidney injury (she had blood work done 1 week ago that also showed acute kidney injury and hyperkalemia) and hyperkalemia with a potassium of 7.1. She was given IV calcium gluconate, 10 units of IV insulin along with 1 amp of D50, 50 mEq of IV sodium bicarbonate, a 500 mL bolus of normal saline, and 1 dose of Kayexalate 30 g. She was also given an albuterol nebulizer treatment. Repeat potassium an hour later was still elevated at 7.4. Her creatinine was elevated at 2.84 and she also had a non-anion gap metabolic acidosis with a serum bicarbonate of 17. A recent PET-CT scan from 2 weeks ago did show moderate right-sided hydronephrosis likely secondary to obstruction from pelvic tumor. She will be admitted for acute kidney injury and hyperkalemia in the setting of advanced metastatic bladder cancer. Principal Diagnosis Acute kidney injury, hyperkalemia, metastatic bladder cancer Discharge Data Allergies Allergy/AdvReac Type Severity Reaction Status Date / Time broccoli Allergy Rash Unverified 08/14/21 17:55 Consultations 08/14/21 15:06 ED Decision to Admit Stat 08/14/21 16:44 Consult Nephrology Routine 08/15/21 00:42 Consult Palliative Care Routine Ordered Studies 08/15/21 10:11 US renal/blad retro comp Routine Hospital Course (1) Acute hyperkalemia: On admission Patient with profound hyperkalemia secondary to acute kidney injury as below Potassium 7.3 on arrival-in the ER, received IV calcium gluconate, insulin 10 units and D50, albuterol, Kayexalate 30 g p.o. Repeat potassium still elevated-we will repeat insulin and D50 now, start sodium bicarbonate drip Potassium improved somewhat on 08/15 but worsened again on 08/16 Acute kidney injury continues to worsen Was given multiple rounds of IV insulin and D50, albuterol, Veltassa, calcium gluconate, but to no avail Also gave Bumex 4 mg IV x1 Patient and her family do not wish to pursue dialysis or nephrostomy tubes and wished to pursue comfort measures only at this time Discontinue all blood draws, and focus on comfort measures Start IV Dilaudid 0.25 mg IV every 4 hours as needed, IV Ativan as needed for anxiety or agitation, atropine drops as needed for secretions, p.o. oxycodone as needed Maintain Clark catheter for comfort Patient peacefully at 2145 on 08/16 (2) BALA (acute kidney injury): Creatinine rising over the last couple of weeks PET-CT scan recently with hydronephrosis on the right secondary to compression from pelvic mass I discussed the case with urology on the phone who does not think that a stent would be helpful as the bladder mass would likely continue to occlude the ureter Placed Clark catheter and still no improvement Renal ultrasound performed which showed mild to moderate hydronephrosis only on the right-this does not explain her worsening renal function Worsening renal function may be secondary to metastatic cancer perhaps to the kidneys? Nephrostomy tubes would likely be futile Given the patient was in significant worsening respiratory distress, transition to comfort measures only as above (3) Weakness: Secondary to metastatic cancer and worsening renal failure (4) Hematuria: Secondary to bladder mass (5) Bladder cancer: Stage IV, metastatic disease Was supposed to start [facility] this [facility], but daughter fears she is too weak to withstand chemotherapy Patient and family decided not to pursue chemotherapy and to transition to comfort measures as above Discussed her care with her oncologist on the phone (6) Hypertension: Discontinue metoprolol (7) Microcytic anemia: Hemoglobin stable at 9.5, microcytic Secondary to chronic hematuria and vaginal bleeding from metastatic cancer Has received IV iron treatments at the cancer center in the recent past Iron studies: Anemia of chronic disease(inflammation) Total Time Total Time Spent Total Time Spent (In Minutes): 20 minutes Discharge Plan Discharge Items Patient Disposition: Discharge Diagnosis: Other Date/Time: 08/16/21 21:30 Coding Level of Care Code D/C DAY MANAGEMENT <30 MINS Diagnoses Acute hyperkalemia E87.5 BALA (acute kidney injury) N17.9 Weakness R53.1 Hematuria R31.9 Bladder cancer C67.9 Hypertension I10 Microcytic anemia D50.9
== END 2021-08-16 21:30 | disposition expired | DRG 683 ==
LOC: ED 12:40 → SUATTDRO 16:44 → EDINP 16:44 → 3E 08-16 19:34